=== PATIENT | female | born 1970 | race Caucasian/White ===

== ENCOUNTER 2023-10-02 13:12 | Outpatient (OUT) | payer OTHER, SELFPAY ==
--- NOTE | 2023-10-02 13:15 | MM_ITS ---
Patient Name: JOLLY MELGAR MR#: [id number] : 1970 Exam Date: 10/02/2023 Ordering Doctor: DR. DELPHINE CASTRO D.O. RADIOLOGY REPORT PROCEDURE: MM TOMOSYNTHESIS SCREENING BI COMPARISON: MAMMO CHU SCREEN, 09/22/2021. MG MAMM SCREEN 3D CHU CAD, 10/01/2022. INDICATIONS: Screening Calculator Name NCI Breast Cancer Risk Assessment Tool 5 Year Breast Cancer Risk 1.40% Lifetime Breast Cancer Risk 11.00% Personal Breast Cancer No Personal Ovarian Cancer No Treatments None Family Cancers Grandmother-maternal with breast cancer at age ~70; Aunt-maternal with breast cancer at age ~50; Grandmother-paternal with lymphoma cancer at age 62. LOCATION: [facility] BREAST COMPOSITION: Heterogeneously dense,which may obscure small masses. FINDINGS: DIAGNOSTIC CATEGORY 1--NEGATIVE. NO CHANGE FROM COMPARISON ASSESSMENT. Scattered benign-appearing lymph nodes are present. RIGHT BREAST: No significant suspicious finding. LEFT BREAST: No significant suspicious finding. RECOMMENDATIONS: ROUTINE MAMMOGRAM AND CLINICAL EVALUATION IN 12 MONTHS. PLEASE NOTE: A NORMAL MAMMOGRAM DOES NOT EXCLUDE THE POSSIBILITY OF BREAST CANCER. A CLINICALLY SUSPICIOUS PALPABLE LUMP SHOULD BE BIOPSIED. Dictated by: Marquis Knox MD on 10/03/2023 at 07:51 Approved by: Marquis Knox MD on 10/03/2023 at 07:53
== END 2023-10-02 13:13 | disposition home or self-care (01) ==
LOC: MAMMO 13:12
PROVIDERS: PCP Family Medicine; Visit Provider Obstetrics & Gynecology
DX: Z12.31 Encounter for screening mammogram for malignant neoplasm of breast (principal); Z80.3 Family history of malignant neoplasm of breast; Z80.7 Family history of other malignant neoplasms of lymphoid, hematopoietic and related tissues
CPT/HCPCS: 77063; 77067

== ENCOUNTER 2024-08-02 19:37 | Emergency (ER) | payer OTHER, SELFPAY ==
[2024-08-02 19:42] VITALS: BP 179/102; PULSE 79; TEMP 36.5; O2SAT 96; BMI 60.5
--- OUTSIDE RECORDS SUMMARY | 2024-08-02 19:43 | XMS_ITS | CCD ---
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 And Heating Mechanic Name Role Phone DELPHINE CASTRO Admitting Unavailable DELPHINE CASTRO Attending Unavailable FER, DR SOSA Primary Care Unavailable WEST, DR GEO Polanco Consulting Unavailable DELPHINE CASTRO Consulting Unavailable DELPHINE CASTRO Attending Unavailable DELPHINE CASTRO Attending Unavailable DELPHINE CASTRO Referring Unavailable DELPHINE CASTRO Attending Unavailable Problems Problem Classification Problem Date Documented Date Episodic/Chronic Other screening for suspected conditions (not mental disorders or infectious disease) (4 sources) Encounter for screening mammogram for malignant neoplasm of breast; Translations: [ENC SCR MAMMO MALIG NEOPLASM BREAST] Onset: 10-01-2022 Episodic Residual codes; unclassified (1 source) Family history of malignant neoplasm of breast; Translations: [FAMILY HX MALIG NEOPLASM OF BREAST] Onset: 10-04-2022 Episodic Residual codes; unclassified (1 source) Family history of other malignant neoplasms of lymphoid, hematopoietic and related tissues; Translations: [FAM HX OTH MAL GIL LYMPH HEMATPOETC] Onset: 10-04-2022 Episodic Results Test Name Value Interpretation Reference Range Facil ity MG MAMM SCREEN 3D CHU CADon 10-01-2022 MG MAMM SCREEN 3D CHU CAD Patient: JOLLY MELGAR Exam Date: 10/01/2022 : 1970 Gender:F Ordering : DR. DELPHINE CASTRO DDesiree Admission #: [id number] Family : Order #: [id number] CLICK HERE TO VIEW EXAM RADIOLOGY REPORT PROCEDURE: MAMMOGRAM SCREENING 3D BILATERAL CAD COMPARISON: MAMMO CHU SCREEN, 09/21/2020. MAMMO CHU SCREEN, 09/22/2021. INDICATIONS: Screening mammography Calculator Name NCI Breast Cancer Risk Assessment Tool 5 Year Breast Cancer Risk 1.40% Lifetime Breast Cancer Risk 11.20% Personal Breast Cancer No Personal Ovarian Cancer No Treatments None Family Cancers Grandmother-maternal with breast cancer at age 70; Aunt-maternal with breast cancer at age 50; Grandmother-paternal with lymphoma cancer at age 62. LOCATION: [facility] BREAST COMPOSITION: Heterogeneously dense,which may obscure small masses. FINDINGS: DIAGNOSTIC CATEGORY 1--NEGATIVE. NO CHANGE FROM COMPARISON ASSESSMENT. Scattered benign-appearing lymph nodes are present. RIGHT BREAST: No significant suspicious finding. LEFT BREAST: No significant suspicious finding. RECOMMENDATIONS: ROUTINE MAMMOGRAM AND CLINICAL EVALUATION IN 12 MONTHS. PLEASE NOTE: A NORMAL MAMMOGRAM DOES NOT EXCLUDE THE POSSIBILITY OF BREAST CANCER. A CLINICALLY SUSPICIOUS PALPABLE LUMP SHOULD BE BIOPSIED. Dictated by: Geo Knox MD on 10/01/2022 at 15:27 Approved by: Geo Knox MD on 10/01/2022 at 15:28 Normal [facility] Comprehensive Metabolic Pane slime 10-26-2021 Albumin [Mass/Vol] 4.7 g/dL Normal 3.6-5.1 [facility] Comment on above: Performed By: #### C DAYNE LIPD #### [facility] [address] [place], [place] [id number] Albumin/Globulin [Mass ratio] 2.0 {ratio} Normal 1.0-2.[address] [facility] Comment on above: Performed By: #### C DAYNE LIPD #### [facility] [address] [place], [place] [id number] ALP [Catalytic activity/Vol] 64 U/L Normal 35-[address] [facility] Comment on above: Performed By: #### C DAYNE LIPD #### [facility] [address] [place], [place] [id number] ALT [Catalytic activity/Vol] 13 U/L Normal 6-[address] [facility] Comment on above: Result Comment: 10/18 Female reference range changed. Performed By: #### C DAYNE LIPD #### [facility] [address] [place], [place] [id number] Anion gap [Moles/Vol] 18 mmol/L Normal 12-20 [facility] Comment on above: Result Comment: Effe ctive 11/23/2019 reference range changed. Performed By: #### C DAYNE LIPD #### [facility] [address] [place], [place] [id number] AST [Catalytic activity/Vol] 18 U/L Normal 9-[address] [facility] Comment on above: Performed By: #### C DAYNE LIPLatoya #### [facility] [address] [place], [place] [id number] Bilirubin [Mass/Vol] 0.63 mg/dL Normal 0.30-1.[address] [facility] Comment on above: Performed By: #### C DAYNE LIPLatoya #### [facility] [address] [place], [place] [id number] BUN/CREA 20 Ratio Normal 6-[address] [facility] Comment on above: Performed By: #### C LUIS E OSCAR #### [facility] [address] [place], [place] [id number] Calcium [Mass/Vol] 10.0 mg/dL Normal 8.6-10.2 [facility] Comment on above: Performed By: #### C DAYNE LIPLatoya #### [facility] [address] [place], [place] [id number] Chloride [Moles/Vol] 104 mmol/L Normal 98-[address] [facility] Comment on above: Performed By: #### C LUIS E OSCAR #### [facility] [address] [place], [place] [id number] CO2 [Moles/Vol] 24 mmol/L Normal 20-[address] [facility] Comment on above: Performed By: #### C DAYNE LIPLatoya #### [facility] [address] [place], [place] [id number] Creatinine [Mass/Vol] 0.8 mg/dL Normal 0.6-1.[address] [facility] Comment on above: Performed By: #### C DAYNE LIPLatoya #### [facility] [address] [place], [place] [id number] eGFRAA 97 mL/min/1.73m2 Normal >60 [facility] Specialist Comment on above: Performed By: #### C DAYNE LIPLatoya #### [facility] [address] [place], [place] [id number] eGFRNAA 80 mL/min/1.73m2 Normal >60 [place] [facility] Comment on above: Performed By: #### C DAYNE, LIPD #### [facility] [address] [place], [place] [id number] Globulin (S) [Mass/Vol] 2.3 g/dL Normal 1.9-3.7 [facility] Comment on above: Performed By: #### C MP, LIPD #### [facility] [address] [place], [place] [id number] Glucose [Mass/Vol] 94 mg/dL Normal 65-99 [facility] Comment on above: Result Comment: For FASTING Glucose --- ADA reference ranges: Normal 65-99 mg/dl Prediabetes 100-125 Diabetes >/= 126 Performed By: #### C DAYNE, LIPD #### [facility] [address] [place], [place] [id number] Potassium [Moles/Vol] 4.3 mmol/L Normal 3.5-5.5 [facility] Comment on above: Performed By: #### C DAYNE, LIPD #### [facility] [address] [place], [place] [id number] Protein [Mass/Vol] 7.0 g/dL Normal 6.1-8.1 [facility] Comment on above: Performed By: #### C DAYNE, LIPD #### [facility] [address] [place], [place] [id number] Sodium [Moles/Vol] 141 mmol/L Normal 135-146 [facility] Comment on above: Performed By: #### C DAYNE, LIPD #### [facility] [address] [place], [place] [id number] Urea nitrogen [Mass/Vol] 15 mg/dL Normal 7-25 [facility] Comment on above: Performed By: #### C DAYNE, LIPD #### [facility] [address] [place], [place] [id number] Lipid Panelon 10-26-2021 Cholesterol [Mass/Vol] 202 mg/dL High 125-200 [facility] Comment on above: Result Comment: Low risk < 200mg/dL Borderline risk 201-239 mg/dl High risk > or equal to 240 Performed By: #### C DAYNE, LIPD #### [facility] [address] [place], [place] [id number] Cholesterol in HDL [Mass/Vol] 79 mg/dL Normal >40 [facility] Comment on above: Result Comment: High Cardiovascular Risk HDL <40 mg/dL Low Cardiovascular Risk HDL > or equal to 60 mg/dl Performed By: #### C DAYNE, LIPD #### [facility] [address] [place], [place] [id number] Cholesterol in LDL [Mass/Vol] 112 mg/dL Normal [facility] Specialist Comment on above: Result Comment: LDL ATP III CLASSIFICATION LDL less than 100 mg/dl Optimal LDL 100-129 mg/dl Near or above optimal LDL 130-159 Borderline high LDL 160-189 High LDL greater than 189 mg/dl Very High Performed By: #### C DAYNE, LIPD #### [facility] [address] [place], [place] [id number] Cholesterol in VLDL [Mass/Vol] 11 mg/dL Normal [facility] Comment on above: Performed By: #### C DAYNE, LIPD #### [facility] [address] [place], [place] [id number] Cholesterol.total/C holesterol in HDL [Mass ratio] 3 {ratio} Normal [facility] Comment on above: Performed By: #### C DAYNE, LIPD #### [facility] [address] [place], [place] [id number] Triglyceride [Mass/Vol] 54 mg/dL Normal 30-150 [facility] Comment on above: Result Comment: TRIG ATPIII CLASSIFICATIONS TRIG less than 150 mg/dl Normal TRIG 150-199 mg/dl Borderline High TRIG 200-500 mg/dl High TRIG greather than 500 mg/dl Very High Performed By: #### C MP, LIPD #### [facility] [address] [place], [place] [id number] Encounters Encounter Date Encounter Type Care Provider Facility Start: 11-12-2023 End: 11-12-2023 ambulatory DELPHINE CASTRO Not Available Start: 11-04-2023 End: 11-04-2023 ambulatory DELPHINE CASTRO Not Available Start: 10-21-2023 End: 10-21-2023 ambulatory DELPHINE CASTRO Not Available Start: 10-01-2022 End: 10-02-2022 ambulatory DELPHINE CASTRO Facility:[facility] Payers Date Payer Category Payer Unknown [id number] 1970 Unknown [id number] 1970 Unknown [id number] 1970 Unknown [id number] 1970 Unknown [id number] 1959 Unknown [id number] Summary Purpose Family History No Family History Records FoundNo Family History Records FoundNo Family History Records Found Advance Directives No Advanced Directives Records FoundNo Advanced Directives Records FoundNo Advanced Directives Records Found Additional Source Comments INFORMATION SOURCE (unrecogn ized section and content) DATE CREATED AUTHOR 10/27/2021 [facility] dical Specialist DATE CREATED AUTHOR AUTHOR'S ORGANIZ ATION 10/05/2022 [facility] DATE CREATED AUTHOR AUTHOR'S ORGANIZ ATION 11/14/2023 [facility] dical Specialists EPIC FOR RECORDS PERTAINING TO PATIENTS WHO ARE OR HAVE BEEN ENROLLED IN A CHEMICAL DEPENDENCY/SUBSTANCEABUSE PROGRAM, SOME INFORMATION MAY BE OMITTED. This clinical summary was aggregated from multiple sources. Caution should be exercised in using it in the provision of clinical care. This summary normalizes information from multiple sources, and as a consequence, information in this document may materially change the coding, format and clinical context of patient data. In addition, data may be omitted in some cases. CLINICAL DECISIONS SHOULD BE BASED ON THE PRIMARY CLINICAL RECORDS. [facility]. provides no warranty or guarantee of the accuracy or completeness of information in this document.
--- NOTE | 2024-08-02 19:50 | CT_ITS ---
The [address] [address] Patient Name: JOLLY MELGAR MRN: [id number] date: 1970 Sex: F Assigned Patient Location: ED.MAIN Current Patient Location: ER Accession/Order Number: [id number] Exam Date: 08/02/2024 20:21 Report Date: 08/02/2024 21:30 At the request of: HEDY GREENFIELD Procedure: CT abdomen pelvis w con EXAM: CT abdomen pelvis w con HISTORY: LLQ pain COMPARISON: None. TECHNIQUE: Multiple axial images of the abdomen and pelvis are obtained following administration of IV contrast. Coronal and sagittal reformatted sequences are submitted for review. FINDINGS: The lung bases appear clear. Heart size is normal. The liver, gallbladder, spleen, pancreas and bilateral adrenal glands appear unremarkable. Bilateral kidneys demonstrate normal size, morphology and contrast enhancement. There is no evidence for hydronephrosis bilaterally. The urinary bladder appears unremarkable. Nonobstructive bowel pattern is seen. Normal-appearing appendix is visualized. No significant bowel wall thickening is seen. No significant free fluid or abnormal fluid is seen in the abdomen and pelvis. Mild aortic and iliac arterial calcification is seen without aneurysmal dilatation. Small fat-containing right inguinal hernia as well as umbilical hernia is seen. No destructive osseous lesion is seen. CT/CT abdomen pelvis w con IMPRESSION: No CT evidence for acute abnormality. Electronically authenticated by: CARMENZA SENA Date: 08/02/2024 21:30
--- NOTE | 2024-08-02 19:51 | ED.ABDPAIN1 ---
HPI - Abdominal Pain General Chief Complaint: Abdominal Pain Stated Complaint: Abdominal Pain Time Seen by Provider: 08/02/24 19:42 History of Present Illness HPI narrative: 54-year-old female presents to the emergency department for left lower quadrant abdominal pain. It started last night and it has been continuous and getting worse. No dysuria or hematuria and no constipation or diarrhea. No trauma or fever. She has not had pain like this before. The pain is moderate in getting worse with time. Related Data Home Medications ?Medication ?Instructions ?Recorded ?Confirmed hormone therapy unknown 08/02/24 Allergies Allergy/AdvReac Type Severity Reaction Status Date / Time No Known Drug Allergies Allergy Verified 08/02/24 19:41 Review of Systems ROS Narrative A ten point review of systems is negative except as noted above. Exam Narrative Exam Narrative: Nurses note and vital signs reviewed and patient is not hypoxic. General: The patient appears in no apparent distress. Skin: Warm, dry, no pallor noted. There is no rash noted. Head: Normocephalic, atraumatic Eye: Normal conjunctiva, no drainage Ears, Nose, Mouth, and Throat: oral mucosa is moist. Nares patent. Cardiovascular: Regular Rate and Rhythm Respiratory: Patient is in no distress, no accessory muscle use, lungs are clear to auscultation, no wheezing, rales or rhonchi Back: non-tender GI: Tenderness present in the left lower quadrant without mass or distention. No rebound or guarding. Musculoskeletal: The patient has no evidence of calf tenderness, no pitting edema, symmetrical pulses noted bilaterally Neurological: A&O, normal speech Psychiatric: Cooperative Constitutional Vital Signs, click to edit/add: Last Vital Signs Temp 97.7 F 08/02/24 19:42 Pulse 70 08/02/24 23:15 Resp 16 08/02/24 23:15 BP 149/89 H 08/02/24 23:15 Pulse Ox 96 08/02/24 23:15 O2 Del Method Room Air 08/02/24 19:42 Course Vital Signs Vital signs: Vital Signs Temperature 97.7 F 08/02/24 19:42 Pulse Rate 79 08/02/24 19:42 Respiratory Rate 16 08/02/24 19:42 Blood Pressure 179/102 H 08/02/24 19:42 Pulse Oximetry 96 08/02/24 19:42 Oxygen Delivery Method Room Air 08/02/24 19:42 Temperature 97.7 F 08/02/24 19:42 Pulse Rate 70 08/02/24 23:15 Respiratory Rate 16 08/02/24 23:15 Blood Pressure 149/89 H 08/02/24 23:15 Pulse Oximetry 96 08/02/24 23:15 Oxygen Delivery Method Room Air 08/02/24 19:42 MDM - Abdominal Pain MDM Narrative Medical decision making narrative: CAT scan and ultrasound did not show any acute findings. Ultrasound suggested the possibility of thickened endometrium but she is already had a biopsy a few months ago because thickened endometrium was discovered. It was found to be negative. 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 Treatment diagnosis and follow-up were discussed with the patient. Differential Diagnosis Differential diagnosis: Likely abdominal pain, calculus of kidney, constipation and diverticulitis Lab Data Attestation: I reviewed the patient's lab results. Labs: Lab Results 08/02/24 08/02/24 Range/Units 19:54 19:55 WBC 7.0 (4.0-11.0) 10^3/uL RBC 4.46 (4.20-5.40) 10^6/uL Hgb 13.1 (12.0-16.0) g/dL Hct 40.5 (36.0-48.0) % MCV 90.8 (81.0-99.0) fL MCH 29.4 (26.7-34.0) pg MCHC 32.3 (29.9-35.2) g/dL RDW 12.8 (11.0-15.0) % Plt Count 311 (150-450) 10^3/uL MPV 9.4 L (9.5-13.5) fL Neut % (Auto) 35.8 L (43.0-75.0) % Lymph % (Auto) 53.2 (20.5-60.0) % [place] % (Auto) 7.7 (1.7-12.0) % Eos % (Auto) 2.6 (0.9-7.0) % Baso % (Auto) 0.4 (0.2-2.0) % Neut # (Auto) 2.5 (1.4-6.5) 10^3/uL Lymph # (Auto) 3.7 (1.2-3.8) 10^3/uL [place] # (Auto) 0.5 (0.3-0.8) 10^3/uL Eos # (Auto) 0.2 (0.0-0.7) 10^3/uL Baso # (Auto) 0.0 (0.0-0.1) 10^3/uL Abs Immat Gran (auto) 0.02 (0.00-0.03) 10^3/uL Imm/Tot Granulo (auto) 0.3 (0.0-0.5) % Sodium 139 (136-145) mmol/L Potassium 3.9 (3.5-5.1) mmol/L Chloride 102 (98-107) mmol/L Carbon Dioxide 30.8 (21.0-32.0) mmol/L Anion Gap 10.1 BUN 10.0 (7.0-18.0) mg/dL Creatinine 0.95 (0.55-1.02) mg/dL Est GFR ( Amer) >60 (>=60) Est GFR (Non-Af Amer) >60 (>=60) BUN/Creatinine Ratio 10.5 Glucose 90 (74-106) mg/dL Calcium 9.2 (8.5-10.1) mg/dL Urine Color Lt. yellow (YELLOW) Urine Clarity Clear (CLEAR) Urine pH 7.5 (5.0-9.0) Ur Specific Correll 1.010 (1.005-1.025) Urine Protein Negative (NEG/TRACE) mg/dL Urine Glucose (UA) Negative (NEGATIVE) mg/dL Urine Ketones Negative (NEGATIVE) mg/dL Urine Occult Blood Negative (NEGATIVE) Urine Nitrite Negative (NEGATIVE) Urine Bilirubin Negative (NEGATIVE) Urine Urobilinogen 0.2 (0.2-1.0) EU/dL Ur Leukocyte Esterase Small A (NEGATIVE) Urine RBC 0-2 (0-2) #/HPF Urine WBC 0-2 A (NONE SEEN) #/HPF Ur Squamous Epith Cells Few A (NONE/RARE) #/LPF Urine Crystals None seen (None Seen) #/HPF Urine Bacteria Trace A (NONE SEEN) #/HPF Urine Casts None seen (NONE SEEN) #/LPF Urine Mucus None seen (NONE SEEN) Ur Culture Indicated? Yes Imaging Data CT scan - abdomen: Radiologist's impression: ITS Impressions Abdomen/Pelvis CT 08/02/24 19:50 IMPRESSION: No CT evidence for acute abnormality. Electronically authenticated by: CARMENZA SENA Date: 08/02/2024 21:30 Transvaginal US 08/02/24 21:37 IMPRESSION: 1. The uterus and left ovary appear within normal limits. The right ovary is not seen due to overlying bowel gas. 2. The endometrium measures up to 1.1 cm in thickness which is thickened in a postmenopausal patient. Consider further evaluation with MRI and/or tissue sampling to exclude malignancy as clinically indicated. Electronically authenticated by: Helen RICCI Date: 08/02/2024 23:41 Discharge Plan Discharge Chief Complaint: Abdominal Pain Clinical Impression: Abdominal pain Patient Disposition: Home, Self-Care Time of Disposition Decision: 23:58 Condition: Good Mode of Transportation: Private Vehicle Prescriptions / Home Meds: No Action hormone therapy unknown Print Language: [place] Instructions: Abdominal Pain (ED) Additional Instructions: Follow-up with your staking engineer Referrals: IAN MONROE [Primary Care Provider] - 1 week
[2024-08-02] MEDS: KETOROLAC TROMETHAMINE 30 MG/ML VIAL IVP (20:00)
[2024-08-02 20:28] LABS: Basophils Percent Auto 0.4 % (0.2-2.0); Eosinophils Absolute Auto 0.2 10^3/uL (0.0-0.7); Eosinophils Percent Auto 2.6 % (0.9-7.0); Hematocrit 40.5 % (36.0-48.0); Hemoglobin 13.1 g/dL (12.0-16.0); Immature Granulocytes Abs Auto 0.02 10^3/uL (0.00-0.03); Immature Granulocytes Pct Auto 0.3 % (0.0-0.5); Lymphocytes Absolute Auto 3.7 10^3/uL (1.2-3.8); Lymphocytes Percent Auto 53.2 % (20.5-60.0); Mean Corpuscular HGB Conc 32.3 g/dL (29.9-35.2); Mean Corpuscular Hemoglobin 29.4 pg (26.7-34.0); Mean Corpuscular Volume 90.8 fL (81.0-99.0); Mean Platelet Volume 9.4 fL (9.5-13.5); Monocytes Absolute Auto 0.5 10^3/uL (0.3-0.8); Monocytes Percent Auto 7.7 % (1.7-12.0); Neutrophils Absolute Auto 2.5 10^3/uL (1.4-6.5); Neutrophils Percent Auto 35.8 % (43.0-75.0); Platelet Count 311 10^3/uL (150-450); Red Blood Count 4.46 10^6/uL (4.20-5.40); Red Cell Distribution Width 12.8 % (11.0-15.0)
[2024-08-02 20:29] LABS: Bilirubin Urine NEGATIVE (NEGATIVE); Blood Urine NEGATIVE (NEGATIVE); Clarity Urine CLEAR (CLEAR); Color Urine LT. YELLOW (YELLOW); Glucose Urine UA NEGATIVE (NEGATIVE); Ketones Urine NEGATIVE (NEGATIVE); Leukocyte Esterase Urine SMALL (NEGATIVE); Nitrite Urine NEGATIVE (NEGATIVE); Protein Urine NEGATIVE (NEG/TRACE); Urobilinogen Urine 0.2 EU/dL (0.2-1.0); pH Urine 7.5 (5.0-9.0)
[2024-08-02 20:35] LABS: Anion Gap 10.1; BUN Creatinine Ratio 10.5; Calcium 9.2 mg/dL (8.5-10.1); Carbon Dioxide 30.8 mmol/L (21.0-32.0); Chloride 102 mmol/L (98-107); Estimated GFR (African America >60 (>=60); Estimated GFR (Non-African Ame >60 (>=60); Glucose 90 mg/dL (74-106); Potassium 3.9 mmol/L (3.5-5.1); Sodium 139 mmol/L (136-145)
[2024-08-02 20:43] LABS: Bacteria Urine TRACE #/HPF (NONE SEEN); Crystals Seen? None Seen #/HPF (None Seen); Mucus Urine NONE SEEN (NONE SEEN); RBC Urine 0-2 #/HPF (0-2); Squamous Epithelial Cell Urine FEW #/LPF (NONE/RARE); WBC Urine 0-2 #/HPF (NONE SEEN)
[2024-08-02 20:44] LABS: Cast Seen? NONE SEEN #/LPF (NONE SEEN)
[2024-08-02 20:47] LABS: Urine Culture Indicated YES
--- NOTE | 2024-08-02 21:37 | US_ITS ---
The [address] [address] Patient Name: JOLLY MELGAR MRN: [id number] date: 1970 Sex: F Assigned Patient Location: ER Current Patient Location: ER Accession/Order Number: [id number] Exam Date: 08/02/2024 21:40 Report Date: 08/02/2024 23:41 At the request of: HEDY GREENFIELD Procedure: US pelvis transvaginal EXAM: US pelvis transvaginal HISTORY: Unexplained left lower quadrant pain COMPARISON: Correlation is made with CT abdomen and pelvis examination of the same date. TECHNIQUE: Real time pelvic ultrasound examination was performed using Duplex Doppler by a transvaginal approach. FINDINGS: The uterus is normal in size and echogenicity measuring 7.9 cm in length. No focal myometrial lesions are seen. The endometrium measures up to 1.1 cm in thickness. The right ovary is not visualized. The left ovary is normal in size measuring 2.8 x 1.6 x 1.7 cm. Arterial and venous blood flow are seen within left ovary. There is no significant free fluid. US/US pelvis transvaginal IMPRESSION: 1. The uterus and left ovary appear within normal limits. The right ovary is not seen due to overlying bowel gas. 2. The endometrium measures up to 1.1 cm in thickness which is thickened in a postmenopausal patient. Consider further evaluation with MRI and/or tissue sampling to exclude malignancy as clinically indicated. Electronically authenticated by: Helen RICCI Date: 08/02/2024 23:41
[2024-08-02 21:58] VITALS: BP 123/73
[2024-08-02 23:15] VITALS: BP 149/89; PULSE 70; O2SAT 96
== END 2024-08-03 00:09 | disposition home or self-care (01) ==
PROVIDERS: Emergency Provider Emergency Medicine; PCP Family Medicine
DX: R10.9 Unspecified abdominal pain (principal)
CPT/HCPCS: 36415; 74177; 76830; 80048; 81001; 85025; 87086; 96374; 99285; J1885; Q9967

== ENCOUNTER 2024-10-05 11:16 | Outpatient (OUT) | payer OTHER, SELFPAY ==
--- NOTE | 2024-10-05 11:20 | MM_ITS ---
Patient Name: JOLLY MELGAR MR#: [id number] : 1970 Exam Date: 10/05/2024 Ordering Doctor: DR. DELPHINE CASTRO D.O. RADIOLOGY REPORT PROCEDURE: MM TOMOSYNTHESIS SCREENING BI COMPARISON: MM TOMOSYNTHESIS SCREENING BI, 10/02/2023. MG MAMM SCREEN 3D CHU CAD, 10/01/2022. MAMMO CHU SCREEN, 09/22/2021. MAMMO CHU SCREEN, 09/21/2020. INDICATIONS: Screening Calculator Name NCI Breast Cancer Risk Assessment Tool 5 Year Breast Cancer Risk 1.50% Lifetime Breast Cancer Risk 10.80% Personal Breast Cancer No Personal Ovarian Cancer No Treatments None Family Cancers Grandmother-maternal with breast cancer at age ~70; Aunt-maternal with breast cancer at age ~50; Grandmother-paternal with lymphoma cancer at age 62. LOCATION: [facility] BREAST COMPOSITION: The breasts are heterogeneously dense,which may obscure small masses. FINDINGS: DIAGNOSTIC CATEGORY 1--NEGATIVE. RIGHT BREAST: No significant suspicious finding. No significant change has occurred. LEFT BREAST: No significant suspicious finding. No significant change has occurred. RECOMMENDATIONS: ROUTINE MAMMOGRAM AND CLINICAL EVALUATION IN 12 MONTHS. PLEASE NOTE: A NORMAL MAMMOGRAM DOES NOT EXCLUDE THE POSSIBILITY OF BREAST CANCER. A CLINICALLY SUSPICIOUS PALPABLE LUMP SHOULD BE BIOPSIED. Dictated by: Ty Patterson M.D. on 10/05/2024 at 15:13 Approved by: Ty Patterson M.D. on 10/05/2024 at 15:15
--- OUTSIDE RECORDS SUMMARY | 2024-10-05 11:26 | XMS_ITS | CCD ---
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 No pre-pubertal reference range established using this assay. For any patients for whom low Estradiol levels are anticipated (e.g. males, pre-pubertal children and hypogonadal/post-menopausal females), the [facility] Estradiol, Ultrasensitive, LCMSMS assay is recommended (order code [id number]). Please note: patients being treated with the drug fulvestrant (Faslodex(R)) have demonstrated significant interference in immunoassay methods for estradiol measurement. The cross reactivity could lead to falsely elevated estradiol test results leading to an inappropriate clinical assessment of estrogen status. [facility] order code [id number], Ultrasensitive LC/MS/MS demonstrates negligible cross reactivity with fulvestrant. Performed By: #### 3 [id number] #### [facility]/[place] [id number] [facility] [place], [place] [employer] [facility] [employer] [facility] Assistant: Wilmer Herman M.D.,PhD #### 4021, 745 #### [facility] [address], [address] [place] [address] Food And Nutrition Services Assistant: Corey Rodriguez MD #### 439 #### [facility] [place], [address] [place] [address] Food And Nutrition Services Assistant: Zena Clark MD,PhD,JESSICA ESTROGENS, TOTAL, IAon 09-29 ESTROGENS, TOTAL, IA 76 pg/mL Normal [facility] Comment on above: Result Comment: Reference Ranges for Total Estrogen: Follicular Phase: 51-601 Luteal Phase: 87-1194 Postmenopausal: < or = 214 Performed By: #### 3 6170 #### [facility]/[place] [place], [place] [employer] And [employer] Services Assistant: Wilmer Herman M.D.,PhD #### 4021, 745 #### [facility] [place] [address] [employer] And Nutrition Services Assistant: Corey Rodriguez MD #### 439 #### [facility], [address] [facility] [place] [address] Food And Nutrition Services Assistant: Zena Clark MD,PhD,JESSICA PROGESTERONEon 09-29-2024 PROGESTERONE 1.5 ng/mL Normal [facility] Comment on above: Result Comment: Refe rence Ranges Female Follicular Phase < 1.0 Luteal Phase 2.6-21.5 Post menopausal < 0.5 1st Trimester 4.1-34.0 2nd Trimester 24.0-76.0 3rd Trimester 52.0-302.0 Performed By: #### 3 6170 #### [facility]/[address] [place], [place] [employer] And Nutrition Services Assistant: Wilmer Herman M.D.,PhD #### 4021, 745 #### [facility] [address], [address] [place] [address] Food And Nutrition Services Assistant: Corey Rodriguez MD #### 439 #### [facility], [address] [place] [address] Food And Nutrition Services Assistant: Zena Clark MD,PhD,JESSICA TESTOSTERONE, FREE (DIALYSIS ) AND TOTAL,MSon 09-29-2024 TESTOSTERONE, FREE 9.9 pg/mL High 0.1-6.4 [facility] Comment on above: Result Comment: This test was developed and its analytical performance characteristics have been determined by [facility] [place], [place]. It has not been cleared or approved by the U.S. Food and Drug Administration. This assay has been validated pursuant to the CLIA regulations and is used for clinical purposes. Performed By: #### 3 [id number] #### [facility]/[place] [id number] [facility] [place], [place] [employer] And Nutrition Services Assistant: Wilmer Hemran M.D.,PhD #### 4021, 745 #### [facility] [address], [address] [place] [address] Food And Nutrition Services Assistant: Corey Rodriguez MD #### 439 #### [facility], [address] [place] [address] Food And Nutrition Services Assistant: Zena Clark MD,PhD,JESSICA TESTOSTERONE, TOTAL, MS 70 ng/dL High 2-45 [facility] Comment on above: Result Comment: For additional information, please refer to http://education.[employer]/faq/ XqrrgGjrzexlgtepoISVHABPGY775 (This link is being provided for informational/ educational purposes only.) This test was developed and its analytical performance characteristics have been determined by [facility] [place], [place]. It has not been cleared or approved by the U.S. Food and Drug Administration. This assay has been validated pursuant to the CLIA regulations and is used for clinical purposes. Performed By: #### 3 6170 #### [facility]/[place] [facility] [address] [facility] [place], [place] Food And Nutrition Services Assistant: Wilmer Herman M.D.,PhD #### 4021, 745 #### [facility] [place] [address] [facility], [address] [place] [address] Food And Nutrition Services Assistant: Corey Rodriguez MD #### 439 #### [facility] [address] [address] Food And Nutrition Services Assistant: Zena Clark MD,PhD,JESSICA MG MAMM SCREEN 3D CHU CADon 10-01-2022 MG MAMM SCREEN 3D CHU CAD Patient: JOLLY MELGAR Exam Date: 10/01/2022 : 1970 Gender:F Ordering : DR. DELPHINE CASTRO D.O. Admission #: [id number] Family : Order #: [id number] CLICK HERE TO VIEW EXAM RADIOLOGY REPORT [...] lymphoma cancer at age 62. LOCATION: [facility] BREAST COMPOSITION: Heterogeneously dense,which may obscure small [...] MD on 10/01/2022 at 15:28 Normal [facility] Comprehensive Metabolic Pane slime 10-26-2021 Albumin [Mass/Vol] 4.7 g/dL Normal 3.6-5.1 [facility] Comment on above: Performed By: #### C MP, LIPD #### [facility] [address] [facility] [place] [id number] Albumin/Globulin [Mass ratio] 2.0 {ratio} Normal 1.0-2.5 [facility] Comment on above: Performed By: #### C MP, LIPD #### [facility] [address] [place] [id number] ALP [Catalytic activity/Vol] 64 U/L Normal 35-119 [facility] Comment on above: Performed By: #### C MP, LIPD #### [facility] [address] [facility] [place] [id number] ALT [Catalytic activity/Vol] 13 U/L Normal 6-33 [facility] Comment on above: Result Comment: 10/18 Female reference range changed. Performed By: #### C MP, LIPD #### [facility] [address] [facility] [place] [id number] Anion gap [Moles/Vol] 18 mmol/L Normal 12-20 [facility] Comment on above: Result Comment: Effe ctive 11/23/2019 reference range changed. Performed By: #### C MP, LIPD #### [facility] [address] [place] [id number] AST [Catalytic activity/Vol] 18 U/L Normal 9-34 [facility] Comment on above: Performed By: #### C MP, LIPD #### [facility] [address] [facility] [place] [id number] Bilirubin [Mass/Vol] 0.63 mg/dL Normal 0.30-1.20 [facility] Comment on above: Performed By: #### C DAYNE LIPD #### [facility] [address] [place], [place] [id number] BUN/CREA 20 Ratio Normal 6-22 [facility] Comment on above: Performed By: #### C DAYNE LIPD #### [facility] [address] [place], [place] [id number] Calcium [Mass/Vol] 10.0 mg/dL Normal 8.6-10.2 [facility] Comment on above: Performed By: #### C DAYNE LIPD #### [facility] [address] [facility] [place] [id number] Chloride [Moles/Vol] 104 mmol/L Normal 98-107 [facility] Comment on above: Performed By: #### C DAYNE LIPD #### [facility] [address] [place], [place] [id number] CO2 [Moles/Vol] 24 mmol/L Normal 20-31 [facility] Comment on above: Performed By: #### C DAYNE LIPD #### [facility] [address] [place], [place] [id number] Creatinine [Mass/Vol] 0.8 mg/dL Normal 0.6-1.4 [facility] Comment on above: Performed By: #### C DAYNE LIPD #### [facility] [address] [place], [place] [id number] eGFRAA 97 mL/min/1.73m2 Normal >60 [facility] Comment on above: Performed By: #### C DAYNE LIPLatoya #### [facility] [address] [place], [place] [id number] eGFRNAA 80 mL/min/1.73m2 Normal >60 [facility] Comment on above: Performed By: #### C DAYNE LIPD #### [facility] [address] [place], [place] [id number] Globulin (S) [Mass/Vol] 2.3 g/dL Normal 1.9-3.7 [facility] Comment on above: Performed By: #### C DAYNE LIPD #### [facility] [address] [place], [place] [id number] Glucose [Mass/Vol] 94 mg/dL Normal 65-99 [facility] Comment on above: Result Comment: For FASTING Glucose --- ADA reference ranges: Normal 65-99 mg/dl Prediabetes 100-125 Diabetes >/= 126 Performed By: #### C MP, LIPD #### [facility] [address] [place], [place] [id number] Potassium [Moles/Vol] 4.3 mmol/L Normal 3.5-5.5 [facility] Comment on above: Performed By: #### C MP, LIPD #### [facility] [address] [place], [place] [id number] Protein [Mass/Vol] 7.0 g/dL Normal 6.1-8.1 [facility] Comment on above: Performed By: #### C MP, LIPD #### [facility] [address] [place], [place] [id number] Sodium [Moles/Vol] 141 mmol/L Normal 135-146 [facility] Comment on above: Performed By: #### C MP, LIPD #### [facility] [address] [place], [place] [id number] Urea nitrogen [Mass/Vol] 15 mg/dL Normal 7-25 [facility] Comment on above: Performed By: #### C MP, LIPD #### [facility] [address] [place], [place] [id number] Lipid Panelon 10-26-2021 Cholesterol [Mass/Vol] 202 mg/dL High 125-200 [facility] Comment on above: Result Comment: Low risk < 200mg/dL Borderline risk 201-239 mg/dl High risk > or equal to 240 Performed By: #### C MP, LIPD #### [facility] [address] [place], [place] [id number] Cholesterol in HDL [Mass/Vol] 79 mg/dL Normal >40 [facility] Comment on above: Result Comment: High Cardiovascular Risk HDL <40 mg/dL Low Cardiovascular Risk HDL > or equal to 60 mg/dl Performed By: #### C MP, LIPD #### [facility] [address] [place], [place] [id number] Cholesterol in LDL [Mass/Vol] 112 mg/dL Normal [facility] Comment on above: Result Comment: LDL ATP III CLASSIFICATION LDL less than 100 mg/dl Optimal LDL 100-129 mg/dl Near or above optimal LDL 130-159 Borderline high LDL 160-189 High LDL greater than 189 mg/dl Very High Performed By: #### C MP, LIPD #### [facility] [address] [place], [place] [id number] Cholesterol in VLDL [Mass/Vol] 11 mg/dL Normal [facility] Comment on above: Performed By: #### C MP, LIPD #### [facility] [address] [place], [place] [id number] Cholesterol.total/Ch olesterol in HDL [Mass ratio] 3 {ratio} Normal [facility] Comment on above: Performed By: #### C MP, LIPD #### [facility] [address] [place], [place] [id number] Triglyceride [Mass/Vol] 54 mg/dL Normal 30-150 [facility] Comment on above: Result Comment: TRIG ATPIII CLASSIFICATIONS TRIG less than 150 mg/dl Normal TRIG 150-199 mg/dl Borderline High TRIG 200-500 mg/dl High TRIG greather than 500 mg/dl Very High Performed By: #### C MP, LIPD #### [facility] [address] [place], [place] [id number] Encounters Encounter Date Encounter Type Care Provider Facility Start: 11-12-2023 End: 11-12-2023 ambulatory DELPHINE J RICORA Not Available Start: 11-04-2023 End: 11-04-2023 ambulatory DELPHINE J NATAPRAWIRA Not Available Start: 10-21-2023 End: 10-21-2023 ambulatory DELPHINE J NATAPRAWIRA Not Available Start: 10-01-2022 End: 10-02-2022 ambulatory DELPHINE DARYLAWIRA Facility: Payers Date Payer Category Payer Unknown [id number] [id number] [id number] 1970 Unknown [id number] 1970 Unknown [id number] 1970 Unknown [id number] 1970 Unknown [id number] 1959 Unknown [id number] Summary Purpose Family History No Family History Records FoundNo Family History Records FoundNo Family History Records FoundNo Family History Records Found Advance Directives No Advanced Directives Records FoundNo Advanced Directives Records FoundNo Advanced Directives Records FoundNo Advanced Directives Records Found Additional Source Comments INFORMATION SOURCE (unrecogn ized section and content) DATE CREATED AUTHOR 10/27/2021 [facility] dical Specialist DATE CREATED AUTHOR AUTHOR'S ORGANIZ ATION 10/05/2022 [facility] pital DATE CREATED AUTHOR AUTHOR'S ORGANIZ ATION 11/14/2023 [facility] dical Specialists EPIC DATE CREATED AUTHOR AUTHOR'S ORGANIZ ATION 10/02/2024 [facility] FOR RECORDS PERTAINING TO PATIENTS WHO ARE [...] BE BASED ON THE PRIMARY CLINICAL RECORDS. [facility] [employer] provides no warranty or guarantee of the accuracy or completeness of information in this document.
== END 2024-10-05 11:17 | disposition home or self-care (01) ==
LOC: MAMMO 11:16
PROVIDERS: PCP Family Medicine; Visit Provider Obstetrics & Gynecology
DX: Z12.31 Encounter for screening mammogram for malignant neoplasm of breast (principal); Z80.3 Family history of malignant neoplasm of breast; Z80.7 Family history of other malignant neoplasms of lymphoid, hematopoietic and related tissues
CPT/HCPCS: 77063; 77067

== ENCOUNTER 2025-10-06 10:15 | Outpatient (OUT) | payer OTHER, SELFPAY ==
--- NOTE | 2025-10-06 10:19 | MM_ITS ---
Patient Name: JOLLY MELGAR MR#: [id number] : 1970 Exam Date: 10/06/2025 Ordering Doctor: DR. DELPHINE CASTRO D.O. RADIOLOGY REPORT PROCEDURE: MM TOMOSYNTHESIS SCREENING BI COMPARISON: MM TOMOSYNTHESIS SCREENING BI, 10/05/2024. MM TOMOSYNTHESIS SCREENING BI, 10/02/2023. MG MAMM SCREEN 3D CHU CAD, 10/01/2022. MAMMO CHU SCREEN, 09/21/2020. INDICATIONS: Screening Calculator Name NCI Breast Cancer Risk Assessment Tool 5 Year Breast Cancer Risk 1.60% Lifetime Breast Cancer Risk 10.70% Personal Breast Cancer No Personal Ovarian Cancer No Treatments None Family Cancers Grandmother-maternal with breast cancer at age ~70; Aunt-maternal with breast cancer at age ~50; Grandmother-paternal with lymphoma cancer at age 62. LOCATION: [facility] BREAST COMPOSITION: The breasts are heterogeneously dense, which may obscure small masses. FINDINGS: RIGHT BREAST: No significant suspicious finding. LEFT BREAST: No significant suspicious finding. DIAGNOSTIC CATEGORY 1--NEGATIVE. NO CHANGE FROM COMPARISON ASSESSMENT. RECOMMENDATIONS: ROUTINE MAMMOGRAM AND CLINICAL EVALUATION IN 12 MONTHS. Dictated by: Agapito Jefferson MD on 10/06/2025 at 15:52 Approved by: Agapito Jefferson MD on 10/06/2025 at 16:01
--- OUTSIDE RECORDS SUMMARY | 2025-10-06 10:19 | XMS_ITS | CCD ---
Author Organization [facility] Care Team Providers Care Labor Economics Teacher Name Role Phone AFIA DIAS Admitting Unavailable AFIA DIAS Attending Unavailable DR DOUGLAS MONROE Primary Care Unavailable WEST, DR GEO Polanco Consulting Unavailable AFIA DIAS Consulting Unavailable Douglas Monroe MD Primary Care Provider Douglas Monroe MD Primary Care Provider Douglas Monroe MD Primary Care Provider Michael Garcia MD Attending Provider [phone] Michael Garcia Attending Unavailable Michael Garcia Admitting Unavailable ALEXANDER TREJO Attending Unavailable DOUGLAS MONROE Referring Unavailable ALEXANDER TREJO Attending Unavailable AFIA DIAS Attending Unavailable DOUGLAS MONROE Attending Unavailable Douglas Monroe MD Primary Care Provider [phone] Medications Current Medications MedicationDrug Class(es)DatesSig (Normalized)Sig (Original)b complex vitamins capsule (2 sources)take 1 capsule by mouth once dailyb complex vitamins capsule Take 1 capsule by mouth Daily Activecholecalciferol 0.05 mg oral capsule (13 sources)Vitamin Dtake 1 capsule by mouth once dailycholecalciferol (Vitamin D-3) 50 MCG (1999) capsule Take 1,000 Units by mouth Daily Activetake 1 capsule by mouth in the morningcholecalciferol (Vitamin D-3) 50 MCG (1999) capsule Take 2,000 Units by mouth in the morning. ActiveHormone Cream Base (HRT Base) cream (2 sources)Hormone Cream Base (HRT Base) cream Estriol 0.125mg-estradiol 0.115- progesterone 35mg-testosterone0.2MG/0.5ML ActiveIodine / Potassium Iodide (2 sources)take 0.5 tablet by mouth once dailyIODINE-POTASSIUM IODIDE PO Take 0.5 tablets by mouth Daily ActiveMagnesium Hydroxide (2 sources)take 600 mg by mouth once dailyMagnesium Hydroxide (MAGNESIA PO) Take 600 mg by mouth Daily glycinate ActiveMultiple Vitamin (multivitamin) capsule (13 sources)take 1 capsule by mouth in the morningMultiple Vitamin (multivitamin) capsule Take 1 capsule by mouth in the morning. ActiveProbiotic Product (PROBIOTIC BLEND PO) (13 sources)Probiotic Product (PROBIOTIC BLEND PO) Take by mouth. Activezinc citrate 30 mg oral capsule (13 sources)take 1 capsule by mouth in the morningZinc 30 MG capsule Take 1 capsule by mouth in the morning. Active Completed/Discontinued Medications MedicationDrug Class(es)DatesSig (Normalized)Sig (Original)ascorbic acid 500 mg oral capsule (12 sources)Vitamin C End: 47-19-8665nzxj 1 capsule by mouth once dailyAscorbic Acid (Vitamin C) 500 MG capsule Take 1 capsule by mouth 1 (one) time each day. 08/03/2025 D iscontinued (Med list cleanup)Misc Natural Products (DETOX PO) (12 sources) End: 94-36-1553mxcl 1 capsule by mouth in the morningMisc Natural Products (DETOX PO) Take 1 capsule by mouth in the morning. 08/03/2025 Discontinued (Med list cleanup)take 1 capsule by mouth in the morningMisc Natural Products (DETOX PO) Take 1 capsule by mouth in the morning. ActiveMISC NATURAL PRODUCTS EX (12 sources) End: 67-46-6442OOXZ NATURAL PRODUCTS EX Apply topically Estradiol cream 0.115 mg Estriol 0.125 mg Testosterone 0.2mg Progesterone 35 mg Vanpen cream 0.5ml FROM BUDERER 08/03/2025 Discontinued (Med list cleanup)MISC NATURAL PRODUCTS EX Apply topically Estradiol cream 0.115 mg Estriol 0.125 mg Testosterone 0.2mg Progesterone 35 mg Vanpen cream 0.5ml FROM BUDERER ActiveMISC NATURAL PRODUCTS EX Apply topically Estradiol cream 0.25 mg Estriol 0.25 mg Testosterone 0.25 mg Progesterone 25 mg FROM BUDERER Active Problems Active Problems Problem ClassificationProblemDateDocumented DateEpisodic/Chronic Administrative/social admission (2 sources)Advance directive discussed with patient; Translations: [Other specified counseling]85-49-4740QacuosjqVlmhiohkmk disorders (4 sources)Menopausal syndrome; Translations: [Menopausal and female climacteric states]92-50-9277NvsrtgvMisqfdidkf disorders (2 sources)Postmenopausal state; Translations: [Hormone replacement therapy] 01-00-3220ZxmyvrujOehjszulf disorders (13 sources)Irregular periods; Translations: [Irregular menstruation, unspecified]Onset: 030312-08-0308WouhwodTritmnzkoojd breast conditions (13 sources)Fibrocystic disease of breast; Translations: [Diffuse cystic mastopathy of unspecified breast]Onset: 391023-96-8814SwpbdnkCkbrl female genital disorders (2 sources)Pain in female genitalia on intercourse; Translations: [Unspecified dyspareunia]64-81-5868OcfnjvuBsadb nutritional; endocrine; and metabolic disorders (13 sources)Obesity caused by energy imbalance; Translations: [Other obesity due to excess calories]Onset: 663214-93-9671JjllkqaMfyxqagr of female genital organs (2 sources)Midline cystocele; Translations: [Cystocele, midline]10-21-2024 ChronicResidual codes; unclassified (1 source)Family history of malignant neoplasm of breast; Translations: [FAMILY HX MALIG NEOPLASM OF BREAST]Onset: 77-29-4917LtaobsazPkoircol codes; unclassified (1 source)Family history of other malignant neoplasms of lymphoid, hematopoietic and related tissues; Translations: [FAM HX OTH MAL GIL LYMPH HEMATPOETC]Onset: 58-04-1767CljzlslkFbkezqgg codes; unclassified (2 sources)Menopause present; Translations: [Asymptomatic menopausal state] 96-98-9290Snkaoloj Past or Other Problems Problem ClassificationProblemDateDocumented DateEpisodic/ChronicOther nutritional; endocrine; and metabolic disorders (13 sources)Body mass index 25-29 - overweight; Translations: [Overweight]Onset: 888060-12-3630NhdwqrmoCkkjf screening for suspected conditions (not mental disorders or infectious disease) (20 sources)Encounter for screening mammogram for malignant neoplasm of breast; Translations: [Patient encounter status]Onset: 37-65-3758Hlmafkgo Results Test NameValueInterpretationReference RangeFacilityCOMPREHENSIVE METABOLIC PANEL on 32-98-7565Xwbxmdc [Mass/Vol]4.6 g/dLNormal3.6-5.1Quest DiagnosticsComment on above:Performed By: #### 61994, 7600 #### [facility] of [address], [address] [place] [address] Heading Up Machine Operator: Corey Rodriguez MDAlbumin/Globulin [Mass ratio]1.6 {ratio}Normal 1.0-2.5Quest DiagnosticsComment on above:Performed By: #### 53444, 7600 #### [facility] of [place] [address] Heading Up Machine Operator: Corey Rodriguez MDALP [Catalytic activity/Vol]55 U/TXashny49-518 [facility] DiagnosticsComment on above:Performed By: #### 47361, 7600 #### [facility] of [place] [address] Heading Up Machine Operator: Corey Rodriguez MDALT [Catalytic activity/Vol]14 U/LNormal6-29 Quest DiagnosticsComment on above:Performed By: #### 10649, 7600 #### [facility] of [place] [address] Heading Up Machine Operator: Corey Rodriguez MDAST [Catalytic activity/Vol]18 U/HDccley92-74 Quest DiagnosticsComment on above:Performed By: #### 29639, 7600 #### [facility] of [place] [address] Heading Up Machine Operator: Corey Rodriguez MDBilirubin [Mass/Vol]0.4 mg/dLNormal0.2-1.2 Quest DiagnosticsComment on above:Performed By: #### 71514, 7600 #### [facility] of [address], [address] [place] [address] Heading Up Machine Operator: Corey Rodriguez MDBUN/CREATININE RATIOSEE NOTE:Normal6-22Quest DiagnosticsComment on above:Result Comment: Not Reported: BUN and Creatinine are within reference range.Performed By: #### 51556, 7600 #### [facility] of [address], [address] [place] [address] Heading Up Machine Operator: Corey Rodriguez MDCalcium [Mass/Vol]9.5 mg/dLNormal8.6-10.4Quest DiagnosticsComment on above:Performed By: #### 67625, 7600 #### [facility] of [address], [address] [place] [address] Heading Up Machine Operator: Corey Rodriguez MDChloride [Moles/Vol]105 mmol/HSdxtyq00-770 Quest DiagnosticsComment on above:Performed By: #### 28980, 7600 #### [facility] of [address], [address] [place] [address] Heading Up Machine Operator: Corey Rodriguez MDCO2 [Moles/Vol]26 mmol/CGcirav31-69Znoku DiagnosticsComment on above:Performed By: #### 62219, 7600 #### [facility] of [place] [address] Heading Up Machine Operator: Corey KAURreatinine [Mass/Vol]0.79 mg/dLNormal0.50-1.03 [facility] DiagnosticsComment on above:Performed By: #### 23166, 7600 #### [facility] of [place] [address] Heading Up Machine Operator: Corey Rodriguez MDGFR/1.73 sq M.predicted among non-blacks MDRD (S/P/Bld) [Vol rate/Area]88 mL/min/{1.73_m2}Normal> OR = 60[facility] Comment on above:Performed By: #### 58048, 7600 #### [facility] of [place] [address] Heading Up Machine Operator: Corey Rodriguez MDGlobulin (S) [Mass/Vol]2.9 g/dLNormal1.9-3.7 Quest DiagnosticsComment on above:Performed By: #### 86275, 7600 #### [facility] [place] [address] Heading Up Machine Operator: Corey Rodriguez MDGlucose [Mass/Vol]88 mg/oYMpqybs60-84Uqstd DiagnosticsComment on above:Result Comment: Fasting reference intervalPerformed By: #### 85794, 7600 #### [facility] [place] [address] Heading Up Machine Operator: Corey Rodriguez MDPotassium [Moles/Vol]4.1 mmol/LNormal3.5-5.3 [facility] DiagnosticsComment on above:Performed By: #### 50141, 7600 #### [facility] [place] [address] Heading Up Machine Operator: Corey Rodriguez MDProtein [Mass/Vol]7.5 g/dLNormal6.1-8.1Quest DiagnosticsComment on above:Performed By: #### 59673, 7600 #### [facility] [place] [address] Heading Up Machine Operator: Corey Rodriguez MDSodium [Moles/Vol]138 mmol/XDegxiu605-610Gwhdv DiagnosticsComment on above:Performed By: #### 26781, 7600 #### [facility] [place] [address] Heading Up Machine Operator: Corey Rodriguez MDUrea nitrogen [Mass/Vol]13 mg/dLNormal7-25 Quest DiagnosticsComment on above:Performed By: #### 24992, 7600 #### [facility] [place] [address] Heading Up Machine Operator: Corey Rodriguez MDLIPID PANEL, STANDARDon 70-40-3991Ipgeneynupr [Mass/Vol]226 mg/dLHigh<200Quest DiagnosticsComment on above:Order Comment: FASTING:YES FASTING: YESPerformed By: #### 31003, 7600 #### [facility] [address], [address] [place] [address] Heading Up Machine Operator: Corey Rodriguez MDCholesterol in HDL [Mass/Vol]101 mg/dLNormal> OR = 50Quest DiagnosticsComment on above:Order Comment: FASTING:YES FASTING: YESPerformed By: #### 76353, 7600 #### [facility] [address], [address] [place] [address] Heading Up Machine Operator: Corey KAURholesterol in LDL [Mass/Vol]109 mg/dLHigh Quest DiagnosticsComment on above:Order Comment: FASTING:YES FASTING: YESResult Comment: Reference range: <100 Desirable range <100 mg/dL for primary prevention; <70 mg/dL for patients with CHD or diabetic patients with > or = 2 CHD risk factors. LDL-C is now calculated using the Sandhya calculation, which is a validated novel method providing better accuracy than the Friedewald equation in the estimation of LDL-C. Yasmani MUSTAFA et al. CATHY. 2013;310(19): 1593-3282 (http://education.[employer] OTR.AriadNEXT/faq/HHG623)Performed By: #### 11369, 7600 #### [facility] [address], [address] [place] [address] Heading Up Machine Operator: Corey Rosales.total/Cholesterol in HDL [Mass ratio]2.2 {ratio}Normal<5.0Quest DiagnosticsComment on above:Order Comment: FASTING:YES FASTING: YESPerformed By: #### 87615, 7600 #### [facility] [address], [address] [place] [address] Heading Up Machine Operator: Corey ALCARAZ HDL ERJAHWHZMQU179 mg/dL (calc)Normal<130 Quest DiagnosticsComment on above:Order Comment: FASTING:YES FASTING: YESResult Comment: For patients with diabetes plus 1 major ASCVD risk factor, treating to a non-HDL-C goal of <100 mg/dL (LDL-C of <70 mg/dL) is considered a therapeutic option.Performed By: #### 05860, 7600 #### [facility] [address], [address] [place] [address] Heading Up Machine Operator: Corey Rodriguez MDTriglyceride [Mass/Vol]72 mg/dLNormal<150Quest DiagnosticsComment on above:Order Comment: FASTING:YES FASTING: YESPerformed By: #### 84615, 7600 #### [facility] [address], [address] [place] [address] Heading Up Machine Operator: Corey Rodriguez MDLaboratory - Chemistry and Chemistry - critical access hospital [id number] [Mass/Vol]4.6 g/dL3.6 - 5.1 g/dLNOMI Healthcare Albumin/Globulin [Mass ratio]1.6 {ratio}NOMS HealthcareALP [Catalytic activity/Vol]55 U/L37 - 153 U/LNOMS HealthcareALT [Catalytic activity/Vol]14 U/L 6 - 29 U/LNOMS HealthcareAST [Catalytic activity/Vol]18 U/L10 - 35 U/LNOMS HealthcareBilirubin [Mass/Vol]0.4 mg/dL0.2 - 1.2 mg/dLNOMS HealthcareCalcium [Mass/Vol]9.5 mg/dL8.6 - 10.4 mg/dLNOMI HealthcareChloride [Moles/Vol]105 mmol/L 98 - 110 mmol/LNOMS HealthcareCO2 [Moles/Vol]26 mmol/L20 - 32 mmol/LNOMS HealthcareCreatinine [Mass/Vol]0.79 mg/dL0.50 - 1.03 mg/dLNOMI Healthcare GFR/1.73 sq M.predicted among non-blacks MDRD (S/P/Bld) [Vol rate/Area]88 mL/min/{1.73_m2}> OR = 60 mL/min/1.20e3WPQT HealthcareGlobulin (S) [Mass/Vol]2.9 g/dLNOMI HealthcareGlucose [Mass/Vol]88 mg/dL65 - 99 mg/dLNOMI Healthcare Comment on above: Fasting reference interval Potassium [Moles/Vol]4.1 mmol/L3.5 - 5.3 mmol/LNOMS HealthcareProtein [Mass/Vol] 7.5 g/dL6.1 - 8.1 g/dLThree Rivers HealthcareSodium [Moles/Vol]138 mmol/L135 - 146 mmol/LNOMS HealthcareUrea nitrogen [Mass/Vol]13 mg/dL7 - 25 mg/dLThree Rivers Healthcare Urea nitrogen/Creatinine [Mass ratio]SEE NOTE:[facility] HealthcareComment on above: Not Reported: BUN and Creatinine are within reference range. Lipid 1996 panelon 92-09-9591Yfdgqvpbbhx [Mass/Vol]226 mg/dLHighNINF - 200 mg/dL [facility] HealthcareCholesterol in HDL [Mass/Vol]101 mg/dL> OR = 50[facility] Cholesterol in LDL [Mass/Vol]109 mg/dLHighmg/dL (calc)[facility] HealthcareComment on above:Reference range: <100 Desirable range <100 mg/dL for primary prevention; <70 mg/dL for patients with CHD or diabetic patients with > or = 2 CHD risk factors. LDL-C is now calculated using the Yasmani-Osmel calculation, which is a validated novel method providing better accuracy than the Friedewald equation in the estimation of LDL-C. Yasmani SS et al. CATHY. 2013;310(19): 3726-7734 (http://education.[employer] OTR.AriadNEXT/faq/UAF093) Cholesterol non HDL [Mass/Vol]125 mg/dLNISt. Johns & Mary Specialist Children HospitalComment on above:For patients with diabetes plus 1 major ASCVD risk factor, treating to a non-HDL-C goal of <100 mg/dL (LDL-C of <70 mg/dL) is considered a therapeutic option. Cholesterol.total/Cholesterol in HDL [Mass ratio]2.2 {ratio}[facility] [place] Interpretation and review of laboratory resultsAbBeaumont Hospital Triglyceride [Mass/Vol]72 mg/dLNINF - 150 mg/dLThree Rivers HealthcareNo Panel Informationon [id number]:YES FASTING: YESQUESTPerforming Organization Information Site ID: QPT Name: [facility] Address: [address] [place] [address], [address] [place] [id number] Director: Corey Rodriguez MDCritical access hospitalCALCITRIOL 1,25 DIHYDROXYVITAMIN Don 39-77-9601EYAZIMW D, 1,25 (OH)2, TOTAL56 pg/sJKvyped07-57 [facility] DiagnosticsComment on above:Performed By: #### 75884, 46184 #### [facility] [address] [facility] [place], [place] Heading Up Machine Operator: Wilmer Herman M.D.,PhD #### 622, 367, 402, 4021, 745 #### [facility] [address], [address] [place], [place] [address] Heading Up Machine Operator: Corey Rodriguez MD #### 13446, 23160 #### [facility], [address] [place] [address] Heading Up Machine Operator: Zena Clark MD,PhD,MBAVITAMIN D2, 1,25 (OH)2<8NormalQuest DiagnosticsComment on above:Result Comment: Vitamin D3, 1,25(OH)2 indicates both endogenous production and supplementation. Vitamin D2, 1,25(OH)2 is an indicator of exogenous sources, such as diet or supplementation. Interpretation and therapy are based on measurement of Vitamin D,1,25(OH)2, Total. This test was developed and its analytical performance characteristics have been determined by [facility] [place], [place]. It has not been cleared or approved by the FDA. This assay has been validated pursuant to the CLIA regulations and is used for clinical purposes.Performed By: #### 64369, 95635 #### [facility] [address] [facility] [place], [place] Heading Up Machine Operator: Wilmer Herman M.D.,PhD #### 622, 367, 402, 4021, 745 #### [facility] [address], [address] [place], [place] [address] Heading Up Machine Operator: Corey Rodriguez MD #### 50520, 34736 #### [facility], [address] [place] [address] Heading Up Machine Operator: Zena Clark MD,PhD,MBAVITAMIN D3, 1,25 (OH)256 pg/mLNormal [facility]osticsComment on above:Performed By: #### 23992, 74397 #### [facility] [address] [facility] [address] [place] Heading Up Machine Operator: Wilmer Herman M.D.,PhD #### 622, 367, 402, 4021, 745 #### [facility] [address], [address] [place] [address] Heading Up Machine Operator: Corey Rodriguez MD #### 83068, 10861 #### [facility]/[place] [address] Heading Up Machine Operator: Zena Clark MD,PhD,MBACORTISOL, TOTALon [id number], TOTAL11.0 mcg/dLNormalQuest DiagnosticsComment on above:Result Comment: Reference Range: For 8 a.m.(7-9 a.m.) Specimen: 4.0-22.0 Reference Range: For 4 p.m.(3-5 p.m.) Specimen: 3.0-17.0 * Please interpret above results accordingly *Performed By: #### 73085, 6345 #### [facility] [address], [address] [place], [place] [address] Heading Up Machine Operator: Corey Rodriguez MDCortisolon 10-30-9885Ycejcjvt [Mass/Vol]11 ug/dLmcg/dLNOMS HealthcareComment on above:Reference Range: For 8 a.m.(7-9 a.m.) Specimen: 4.0-22.0 Reference Range: For 4 p.m.(3-5 p.m.) Specimen: 3.0-17.0 * Please interpret above results accordingly * DHEA SULFATEon 88-00-8671GUFC TMTNHES603 mcg/dLNormal5-167[facility] Comment on above:Performed By: #### 94550, 7412 #### [facility] [address], [address] [place] [address] Heading Up Machine Operator: Corey Rodriguez MDDHEA-sulfateon 48-34-1459QSTE-S [Mass/Vol]114 ug/dLNOMS HealthcareESTRADIOLon 12-42-0594OVOSRJBNH01 pg/mLNormalQuest DiagnosticsComment on above:Result Comment: Reference Range Follicular Phase: 19-144 Mid-Cycle: 64-357 Luteal Phase: 56-214 Postmenopausal: < or = 31 Reference range established on post-pubertal patient population. No pre-pubertal reference range established using this assay. For any patients for whom low Estradiol levels are anticipated (e.g. males, pre-pubertal children and hypogonadal/post-menopausal females), the [facility] Estradiol, Ultrasensitive, LCMSMS assay is recommended (order code [id number]). Please note: patients being treated with the drug fulvestrant (Faslodex(R)) have demonstrated significant interference in immunoassay methods for estradiol measurement. The cross reactivity could lead to falsely elevated estradiol test results leading to an inappropriate clinical assessment of estrogen status. [facility] order code [id number], Ultrasensitive LC/MS/MS demonstrates negligible cross reactivity with fulvestrant.Performed By: #### 23480, 7082 #### [facility] [address], [address] [place], [place] [address] Heading Up Machine Operator: Corey Rodriguez MDESTRONEon 43-91-9442MJIXDFI59 pg/mLNormalQuest DiagnosticsComment on above:Result Comment: Adult Female Reference Ranges for Estrone: Follicular Phase: 10-138 pg/mL Luteal Phase: 16-173 pg/mL Postmenopausal Phase: < or = 65 pg/mL Pediatric Female Reference Ranges for Estrone: Pre-pubertal (1-9 years): < or = 34 pg/mL 10-11 years: < or = 72 pg/mL 12-14 years: < or = 75 pg/mL 15-17 years: < or = 188 pg/mL This test was developed and its analytical performance characteristics have been determined by [employer] [facility]. It has not been cleared or approved by the FDA. This assay has been validated pursuant to the CLIA regulations and is used for clinical purposes.Performed By: #### 46731, 08823 #### [facility]/[place] [address] [facility] [address] [place], [place] Heading Up Machine Operator: Wilmer Herman M.D.,PhD #### 622, 367, 402, 4021, 745 #### [facility] [address] [facility], [address] [place] [address] Heading Up Machine Operator: Corey Rodriguez MD #### 39393, 93247 #### [facility]/[place] [facility], [address] [place] [address] Heading Up Machine Operator: Zena Clark MD,PhD,MBAEstradiolon [id number] [Mass/Vol]21 pg/mLNOMS HealthcareComment on above:Reference Range Follicular Phase: 19-144 Mid-Cycle: 64-357 Luteal Phase: 56-214 Postmenopausal: < or = 31 Reference range established on post-pubertal patient population. No pre-pubertal reference range established using this assay. For any patients for whom low Estradiol levels are anticipated (e.g. males, pre-pubertal children and hypogonadal/post-menopausal females), the [employer] [facility] [facility] Estradiol, Ultrasensitive, LCMSMS assay is recommended (order code [id number]). Please note: patients being treated with the drug fulvestrant (Faslodex(R)) have demonstrated significant interference in immunoassay methods for estradiol measurement. The cross reactivity could lead to falsely elevated estradiol test results leading to an inappropriate clinical assessment of estrogen status. [employer] [facility] [facility] order code [id number], Ultrasensitive LC/MS/MS demonstrates negligible cross reactivity with fulvestrant. Estroneon [id number] [Mass/Vol]30 pg/mLNOMS HealthcareComment on above: Adult Female Reference Ranges for Estrone: Follicular Phase: 10-138 pg/mL Luteal Phase: 16-173 pg/mL Postmenopausal Phase: < or = 65 pg/mL Pediatric Female Reference Ranges for Estrone: Pre-pubertal (1-9 years): < or = 34 pg/mL 10-11 years: < or = 72 pg/mL 12-14 years: < or = 75 pg/mL 15-17 years: < or = 188 pg/mL This test was developed and its analytical performance characteristics have been determined by [employer] [facility] [facility]. It has not been cleared or approved by the FDA. This assay has been validated pursuant to the CLIA regulations and is used for clinical purposes. MAGNESIUMon [id number] [Mass/Vol]2.3 mg/dLNormal1.5-2.5Quest DiagnosticsComment on above:Performed By: #### 40954, 76540 #### [facility]/[address] [place], [place] Heading Up Machine Operator: Wilmer Herman M.D.,PhD #### 622, 367, 402, 4021, 745 #### [facility] [place] [address] Heading Up Machine Operator: Corey Rodriguez MD #### 24167, 65473 #### [employer] [facility]/[place] [address] Heading Up Machine Operator: Zena Clark MD,PhD,MBAMagnesiumon 26-64-5506Vyqnyojta [Mass/Vol]2.3 mg/dL1.5 - 2.5 mg/dLLOGAN REGIONAL [facility] HealthcareNo Panel Informationon [id number] Organization Information Site ID: QPT Name: [facility] Address: [address] [place] [address] Director: Corey Rodriguez MDAscension Saint Clare's Hospitalg Organization Information Site ID: AMD Name: [employer] [facility]/[place] [facility] Address: [address] [place] [address] [place], [place] Director: Wilmer Herman M.D.,PhDSt. [facility]'s [facility] Organization Information Site ID: EZ Name: [employer] [facility], Address: [address] [place] [address] Director: Zena Clark MD,PhD,MBHILLCREST [facility]PITAL HealthcarePREGNENOLONE, LC/MSon [id number], LC/MS92 ng/iKSusmfc27-757Buzqi DiagnosticsComment on above:Result Comment: This test was developed and its analytical performance characteristics have been determined by [employer] [facility] [facility]. It has not been cleared or approved by the FDA. This assay has been validated pursuant to the CLIA regulations and is used for clinical purposes.Performed By: #### 28904, 7600 #### [facility] [address], [address] [place] [address] Heading Up Machine Operator: Corey CONWAYROGESTERONEon 88-17-9284AVQDMKOEELYY6.8 ng/mL NormalQuest DiagnosticsComment on above:Result Comment: Reference Ranges Female Follicular Phase < 1.0 Luteal Phase 2.6-21.5 Post menopausal < 0.5 1st Trimester 4.1-34.0 2nd Trimester 24.0-76.0 3rd Trimester 52.0-302.0Performed By: #### 46734, 0170 #### [facility] [address], [address] [place] [address] Heading Up Machine Operator: Corey Rodriguez MDPregnenoloneon 51-80-0878Lepyuufyhobj [Mass/Vol]92 ng/dL22 - 237 ng/dLNOMS HealthcareComment on above: This test was developed and its analytical performance characteristics have been determined by [employer]. It has not been cleared or approved by the FDA. This assay has been validated pursuant to the CLIA regulations and is used for clinical purposes. Progesteroneon 56-44-3049Lzkpyhwqzvhh [Mass/Vol]0.8 ng/mLNOMS HealthcareComment on above:Reference Ranges Female Follicular Phase < 1.0 Luteal Phase 2.6-21.5 Post menopausal < 0.5 1st Trimester 4.1-34.0 2nd Trimester 24.0-76.0 3rd Trimester 52.0-302.0 TESTOSTERONE, FREE (DIALYSIS) AND TOTAL,MSon 19-25-8617SVWICJNLSORW, FREE2.0 pg/mLNormal0.1-6.4Quest DiagnosticsComment on above:Result Comment: This test was developed and its analytical performance characteristics have been determined by [employer] [place], [place]. It has not been cleared or approved by the U.S. Food and Drug Administration. This assay has been validated pursuant to the CLIA regulations and is used for clinical purposes.Performed By: #### 85428, 7600 #### [facility] [address], [address] [place] [address] Heading Up Machine Operator: Corey Rodriguez MDTESTOSTERONE, TOTAL, MS18 ng/dLNormal2-45Quest DiagnosticsComment on above:Result Comment: For additional information, please refer to http://education.[employer].AriadNEXT/faq/ OdgfyYagsdzuvorzhYETUUBOLO473 (This link is being provided for informational/ educational purposes only.) This test was developed and its analytical performance characteristics have been determined by [employer] [place], [place]. It has not been cleared or approved by the U.S. Food and Drug Administration. This assay has been validated pursuant to the CLIA regulations and is used for clinical purposes.Performed By: #### 45920, 7600 #### [facility] [address], [address] [place] [address] Heading Up Machine Operator: Corey Rodriguez MDTestosterone Free/Testosterone.total [Mass fraction]on 15-45-9367Luuxzmcgpqjj [Mass/Vol]18 ng/dL2 - 45 ng/dLNOMS Healthcare Comment on above: For additional information, please refer to http://[employer].AriadNEXT/faq/ BnbriQwtjcnyagadvYXPPIUJFM502 (This link is being provided for informational/ educational purposes only.) This test was developed and its analytical performance characteristics have been determined by [place] It has not been cleared or approved by the U.S. Food and Drug Administration. This assay has been validated pursuant to the CLIA regulations and is used for clinical purposes. Testosterone Free [Mass/Vol]2 pg/mL0.1 - 6.4 pg/mLNOMS HealthcareComment on above: This test was developed and its analytical performance characteristics have been determined by [place]. It has not been cleared or approved by the U.S. Food and Drug Administration. This assay has been validated pursuant to the CLIA regulations and is used for clinical purposes. Vitamin D 1,25 dihydroxyon 51,25-dihydroxyvitamin D [Mass/Vol]56 pg/mL 18 - 72 pg/mLNOMS Healthcare1,25-dihydroxyvitamin D2 [Mass/Vol]<8pg/mLNOMS HealthcareComment on above: Vitamin D3, 1,25(OH)2 indicates both endogenous production and supplementation. Vitamin D2, 1,25(OH)2 is an indicator of exogenous sources, such as diet or supplementation. Interpretation and therapy are based on measurement of Vitamin D,1,25(OH)2, Total. This test was developed and its analytical performance characteristics have been determined by [facility] [place]. It has not been cleared or approved by the FDA. This assay has been validated pursuant to the CLIA regulations and is used for clinical purposes. 1,25-dihydroxyvitamin D3 [Mass/Vol]56 pg/mLNOMS HealthcarePathology Request for Lab Corpon 57-39-9467Bddloccko Request for Lab CorpNormAdventHealth Four Corners ER Physician GroupComment on above:Order Comment: SKIN SPECIMENResult Comment: See report. Scanned copy available in EMR. PERFORMED BY: [place] [address] PATHOLOGIST WIND TURBINE INSTALLER NOE DE LA VEGA M.D.Performed By: #### PATH [facility] #### [place] [address] USASEX HORMONE BINDING GLOBULINon 74-11-7077ZMI HORMONE BINDING NBCETKQM27 nmol/JXcttpx69-875Aznvn DiagnosticsComment on above:Performed By: #### 10627 #### [facility] [place] [address] Heading Up Machine Operator: Corey Rodriguez MDSex hormone binding globulinon 52-99-2713Ioh hormone binding globulin [Moles/Vol]36 nmol/L17 - 124 nmol/LNOMS Healthcare Performing Organization Information Site ID: QPT Name: [employer] Address: [address] [place] [address], [address] [place] [address] Director: Corey Rodriguez MDSentara Albem[facility] TOMOSYNTHESIS SCREENING BIon 49-63-8563[place], [place] [address] Mammography Report Signed Patient: JOLLY MELGAR MR#: [id number] : 1970 Acct:[id number] Age/Sex: 54 / F ADM Date: 10/05/24 Loc: MAMMO Attending Dr: AFIA DIAS Ordering Physician: AFIA DIAS Results: Date of Service: 10/05/24 Follow Up: Procedure(s): MM tomosynthesis screening BI Accession Number(s): [id number] cc: DOUGLAS MONROE ; AFIA DIAS Patient Name: JOLLY MELGAR MR#: [id number] : 1970 Exam Date: 10/05/2024 Ordering Doctor: DR. AFIA DIAS D.O. RADIOLOGY REPORT PROCEDURE: MM TOMOSYNTHESIS SCREENING BI COMPARISON: MM TOMOSYNTHESIS SCREENING BI, 10/02/2023. MG MAMM SCREEN 3D CHU CAD, 10/01/2022. MAMMO CHU SCREEN, 09/22/2021. MAMMO CHU SCREEN, 09/21/2020. INDICATIONS: Screening Calculator Name NCI Breast Cancer Risk Assessment Tool 5 Year Breast Cancer Risk 1.50% Lifetime Breast Cancer Risk 10.80% Personal Breast Cancer No Personal Ovarian Cancer No Treatments None Family Cancers Grandmother-maternal with breast cancer at age 70; Aunt-maternal with breast cancer at age 50; Grandmother-paternal with lymphoma cancer at age 62. LOCATION: [facility] BREAST COMPOSITION: The breasts are heterogeneously dense,which may obscure small masses. FINDINGS: DIAGNOSTIC CATEGORY 1--NEGATIVE. RIGHT BREAST: No significant suspicious finding. No significant change has occurred. LEFT BREAST: No significant suspicious finding. No significant change has occurred. RECOMMENDATIONS: ROUTINE MAMMOGRAM AND CLINICAL EVALUATION IN 12 MONTHS. PLEASE NOTE: A NORMAL MAMMOGRAM DOES NOT EXCLUDE THE POSSIBILITY OF BREAST CANCER. A CLINICALLY SUSPICIOUS PALPABLE LUMP SHOULD BE BIOPSIED. Dictated by: Ty Patterson M.D. on 10/05/2024 at 15:13 Approved by: Ty Patterson M.D. on 10/05/2024 at 15:15 Dictated By: Ty Patterson M.D. Signed By: 10/05/24 1516 DD/ 1515 TD/TT: Outside Food Server:TBHRadiology, Radiologist, MD - 10/05/2024 [place] [address] Mammography Report Signed Patient: JOLLY MELGAR MR#: [id number] : 1970 Acct:[id number] Age/Sex: 54 / F ADM Date: 10/05/24 Loc: MAMMO Attending Dr: AFIA DIAS Ordering Physician: FAIA DIAS Results: Date of Service: 10/05/24 Follow Up: Procedure(s): MM tomosynthesis screening BI Accession Number(s): [id number] cc: DOUGLAS MONROE ; AFIA DIAS Patient Name: JOLLY MELGAR MR#: [id number] : 1970 Exam Date: 10/05/2024 Ordering Doctor: DR. AFIA DIAS D.O. RADIOLOGY REPORT PROCEDURE: MM TOMOSYNTHESIS SCREENING BI COMPARISON: MM TOMOSYNTHESIS SCREENING BI, 10/02/2023. MG MAMM SCREEN 3D CHU CAD, 10/01/2022. MAMMO CHU SCREEN, 09/22/2021. MAMMO CHU SCREEN, 09/21/2020. INDICATIONS: Screening Calculator Name NCI Breast Cancer Risk Assessment Tool 5 Year Breast Cancer Risk 1.50% Lifetime Breast Cancer Risk 10.80% Personal Breast Cancer No Personal Ovarian Cancer No Treatments None Family Cancers Grandmother-maternal with breast cancer at age 70; Aunt-maternal with breast cancer at age 50; Grandmother-paternal with lymphoma cancer at age 62. LOCATION: [facility] BREAST COMPOSITION: The breasts are heterogeneously dense,which may obscure small masses. FINDINGS: DIAGNOSTIC CATEGORY 1--NEGATIVE. RIGHT BREAST: No significant suspicious finding. No significant change has occurred. LEFT BREAST: No significant suspicious finding. No significant change has occurred. RECOMMENDATIONS: ROUTINE MAMMOGRAM AND CLINICAL EVALUATION IN 12 MONTHS. PLEASE NOTE: A NORMAL MAMMOGRAM DOES NOT EXCLUDE THE POSSIBILITY OF BREAST CANCER. A CLINICALLY SUSPICIOUS PALPABLE LUMP SHOULD BE BIOPSIED. Dictated by: Ty Patterson M.D. on 10/05/2024 at 15:13 Approved by: Ty Patterson M.D. on 10/05/2024 at 15:15 Dictated By: Ty Patterson M.D. Signed By: 10/05/24 1516 DD/ 1515 TD/TT: Outside Food Server: [facility] HOSPITALShira [facility] Lady [facility] Mer[facility] HospitalRadiology Study observation (narrative)[facility] TOMOSYNTHESIS SCREENING BIOrdered By: Radiologist Radiology on 61-31-6483UQFY [employer] Work Phone: ESTRADIOLon 91-54-5212MBSUYXKWC<15NormalQuest DiagnosticsComment on above:Result Comment: Reference Range Follicular Phase: 19-144 Mid-Cycle: 64-357 Luteal Phase: 56-214 Postmenopausal: < or = 31 Reference range established on post-pubertal patient population. No pre-pubertal reference range established using this assay. For any patients for whom low Estradiol levels are anticipated (e.g. males, pre-pubertal children and hypogonadal/post-menopausal females), the oDesk Estradiol, Ultrasensitive, LCMSMS assay is recommended (order code 67176). Please note: patients being treated with the drug fulvestrant (Faslodex(R)) have demonstrated significant interference in immunoassay methods for estradiol measurement. The cross reactivity could lead to falsely elevated estradiol test results leading to an inappropriate clinical assessment of estrogen status. [employer] order code [id number]-Vnvjaznji, Ultrasensitive LC/MS/MS demonstrates negligible cross reactivity with fulvestrant.Performed By: #### 4021, 745 #### [facility] [address], [address] [place] [address] Heading Up Machine Operator: Corey Rodriguez MD #### 439 #### [facility], [address] [place] [address] Heading Up Machine Operator: Zena Clark MD,PhD,JESSICA #### 27030 #### [facility] [address] [facility] [address] [place] [address] Heading Up Machine Operator: Wilmer Herman M.D.,PhDESTROGENS, TOTAL, IAon 09-29-2024 ESTROGENS, TOTAL, IA76 pg/mLNormalQuest DiagnosticsComment on above:Result Comment: Reference Ranges for Total Estrogen: Follicular Phase: 51-601 Luteal Phase: 87-1194 Postmenopausal: < or = 214Performed By: #### 4021, 745 #### [facility] [place] [address] [facility], [address] [place] [address] Heading Up Machine Operator: Corey Rodriguez MD #### 439 #### [facility], [address] [place] [address] Heading Up Machine Operator: Zena Clark MD,PhD,JESSICA #### 01725 #### [facility] [address] [facility] [address] [place] Heading Up Machine Operator: Wilmer Herman M.D.,PhDPROGESTERONEon 89-86-0573RQJWOZLUKLCV 1.5 ng/mLNormalQuest DiagnosticsComment on above:Result Comment: Reference Ranges Female Follicular Phase < 1.0 Luteal Phase 2.6-21.5 Post menopausal < 0.5 1st Trimester 4.1-34.0 2nd Trimester 24.0-76.0 3rd Trimester 52.0-302.0Performed By: #### 4021, 745 #### [facility] [address], [address] [place] [address] Heading Up Machine Operator: Corey Rodriguez MD #### 439 #### [facility], [address] [place] [address] Heading Up Machine Operator: Zena Clark MD,PhD,JESSICA #### [address]4077 #### [facility]/[place] [address] [facility] [address] [place] Heading Up Machine Operator: Wilmer Herman M.D.,PhDTESTOSTERONE, FREE (DIALYSIS) AND TOTAL,MSon 05-18-4456GRQVNGQJVMDH, FREE9.9 pg/mLHigh0.1-6.4[facility] Comment on above:Result Comment: This test was developed and its analytical performance characteristics have been determined by [employer] [place], [place]. It has not been cleared or approved by the U.S. Food and Drug Administration. This assay has been validated pursuant to the CLIA regulations and is used for clinical purposes.Performed By: #### 4021, 745 #### [facility] [address], [address] [place] [address] Heading Up Machine Operator: Corey Rodriguez MD #### 439 #### [facility], [address] [place] [address] Heading Up Machine Operator: Zena Clark MD,PhD,JESSICA #### 925[address] #### [facility] [address] [facility] [place], [place] Heading Up Machine Operator: Wilmer Herman M.D.,PhDTESTOSTERONE, TOTAL, MS70 ng/dLHigh 2-45Quest DiagnosticsComment on above:Result Comment: For additional information, please refer to http://education.[employer]/faq/ NitekSxoqkgsigssdXEXSUBDXX862 (This link is being provided for informational/ educational purposes only.) This test was developed and its analytical performance characteristics have been determined by [employer] [place]. It has not been cleared or approved by the U.S. Food and Drug Administration. This assay has been validated pursuant to the CLIA regulations and is used for clinical purposes.Performed By: #### 4021, 745 #### [facility] [address] [place], [place] [address] , [address] [place] [address] Heading Up Machine Operator: Corey Rodriguez MD #### 439 #### [facility], [address] [place] [address] Heading Up Machine Operator: Zena Clark MD,PhD,JESSICA #### 81391 #### [facility] [address] [facility] [address] [place] [address] Heading Up Machine Operator: Wilmer Herman M.D.,PhDURINE CULTURE, ROUTINEon 08-04-2024 Bacteria identified Cx Nom (U) Urine Culture, Routine NOMS HealthcareBacteria identified Cx Nom (U)Mixed urogenital floraNOMS HealthcareBacteria identified Cx Nom (U)25,000-50,000 colony forming units per mLNOMS HealthcareBacteria identified Cx Nom (U)Performed at: - [facility] NOMS HealthcareBacteria identified Cx Nom (U)[address] [place], [place] [id number] HealthcareBacteria identified Cx Nom (U)Toll Patrolman: Clifford Sainz PhD, Phone: [phone] HealthcareCLINISYNCARDINAL CUSHING [facility] HealthcareMG MAMM SCREEN 3D CHU CADon 79-27-0279UJ MAMM SCREEN 3D CHU CADPatient: JOLLY MELGAR Exam Date: 10/01/2022 : 1970 Gender:F Ordering : DR. AFIA DIAS D.O. Admission #: [id number] Family : Order #: [id number] CLICK HERE TO VIEW EXAM RADIOLOGY REPORT [...] lymphoma cancer at age 62. LOCATION: [facility] BREAST COMPOSITION: Heterogeneously dense,which may obscure [...] by: Geo Knox MD on 10/01/2022 at 15:28[facility] Comprehensive Metabolic Panelon 56-24-9227Ahzpbdq [Mass/Vol]4.7 g/dLNormal 3.6-5.1[facility] SpecialistComment on above:Performed By: #### CMP, LIPD #### [facility] [address] [place], [place] [id number]/Globulin [Mass ratio]2.0 {ratio}Normal1.0-2.5NoAvita Health [facility] SpecialistComment on above:Performed By: #### CMP, LIPD #### [facility] [address] [place], [place] [id number] [Catalytic activity/Vol]64 U/YIanwva82-169Zneuscxn [place] [facility] SpecialistComment on above:Performed By: #### CMP, LIPD #### [facility] [address] [place], [place] [id number] [Catalytic activity/Vol]13 U/LNormal6-33N[facility] SpecialistComment on above:Result Comment: 10/18/2021 Female reference range changed.Performed By: #### CMP, LIPD #### [facility] [address] [place], [place] [address]Djlyb gap [Moles/Vol]18 mmol/JDzeugn53-02Vqbecltv [place] [facility] SpecialistComment on above:Result Comment: Effective 11/23/2019 reference range changed.Performed By: #### CMP, LIPD #### [facility] [address] [place], [place] [id number] [Catalytic activity/Vol]18 U/LNormal9-34NoAvita Health System [facility] Hospital SpecialistComment on above:Performed By: #### CMP, LIPD #### [facility] [address] [place], [place] [id number] [Mass/Vol]0.63 mg/dLNormal0.30-1.20NortLima [facility] Hospital SpecialistComment on above:Performed By: #### CMP, LIPD #### [facility] [address] [place], [place] [id number]/CREA20 RatioNormal6-22[place] [employer] Comment on above:Performed By: #### CMP, LIPD #### [facility] [address] [place], [place] [id number] [Mass/Vol]10.0 mg/dLNormal8.6-10.2[facility] [place] [facility] SpecialistComment on above:Performed By: #### CMP, LIPD #### [facility] [address] [place], [place] [id number] [Moles/Vol]104 mmol/RGqzwzc14-652Retzeibe [place] [facility] SpecialistComment on above:Performed By: #### CMP, LIPD #### [facility] [address] [place], [place] [id number] [Moles/Vol]24 mmol/AYhjtdi11-40Gpabeail [place] [facility] SpecialistComment on above:Performed By: #### CMP, LIPD #### [facility] [address] [place], [place] [id number] [Mass/Vol]0.8 mg/dLNormal0.6-1.4[facility] [place] [facility] SpecialistComment on above:Performed By: #### CMP, LIPD #### [facility] [address] [place], [place] [id number] mL/min/1.40t0Hlpkgf>60[facility] [place] [facility] SpecialistComment on above:Performed By: #### CMP, LIPD #### [facility] [address] [place], [place] [id number] mL/min/1.18k7Duwduy>60[facility] [place] [facility] SpecialistComment on above:Performed By: #### CMP, LIPD #### [facility] [address] [place], [place] [id number] (S) [Mass/Vol]2.3 g/dLNormal1.9-3.7[facility] [place] [facility] SpecialistComment on above:Performed By: #### CMP, LIPD #### [facility] [address] [place], [place] [id number] [Mass/Vol]94 mg/yUHgxnay48-91Ogrzbqqx [place] [facility] SpecialistComment on above:Result Comment: For FASTING Glucose --- ADA reference ranges: Normal 65-99 mg/dl Prediabetes 100-125 Diabetes >/= 126Performed By: #### CMP, LIPD #### [facility] [address] [place], [place] [id number] [Moles/Vol]4.3 mmol/LNormal3.5-5.5NoAvita Health System [facility] Hospital SpecialistComment on above:Performed By: #### CMP, LIPD #### [facility] [address] [place], [place] [id number] [Mass/Vol]7.0 g/dLNormal6.1-8.1NortherUK Healthcare SpecialistComment on above:Performed By: #### CMP, LIPD #### [facility] [address] [place], [place] [id number] [Moles/Vol]141 mmol/ZUfenev177-003Bizvafvw [place] [facility] SpecialistComment on above:Performed By: #### CMP, LIPD #### [facility] [address] [place], [place] [id number] nitrogen [Mass/Vol]15 mg/dLNormal7-25NoAvita [facility] System [facility] SpecialistComment on above:Performed By: #### CMP, LIPD #### [facility] [address] [place], [place] [id number] Panelon 50-31-6266Gtjlqrdqyka [Mass/Vol]202 mg/dLHigh 125-200NoAvita [facility] System [facility] SpecialistComment on above:Result Comment: Low risk < 200mg/dL Borderline risk 201-239 mg/dl High risk > or equal to 240Performed By: #### CMP, LIPD #### [facility] [address] [place], [place] [id number] in HDL [Mass/Vol]79 mg/dLNormal>40NoAvita Health System [facility] SpecialistComment on above:Result Comment: High Cardiovascular Risk HDL <40 mg/dL Low Cardiovascular Risk HDL > or equal to 60 mg/dlPerformed By: #### CMP, LIPD #### [facility] [address] [place], [place] [id number] in LDL [Mass/Vol]112 mg/dLNormalNoAvita Health System [facility] Hospital SpecialistComment on above:Result Comment: LDL ATP III CLASSIFICATION LDL less than 100 mg/dl Optimal LDL 100-129 mg/dl Near or above optimal LDL 130-159 Borderline high LDL 160-189 High LDL greater than 189 mg/dl Very HighPerformed By: #### CMP, LIPD #### [facility] [address] [place], [place] [id number] in VLDL [Mass/Vol]11 mg/dLNormalUk Healthcare SpecialistComment on above:Performed By: #### CMP, LIPD #### [facility] [address] [place], [place] [id number].total/Cholesterol in HDL [Mass ratio]3 {ratio} NormalNorttucson va medical centern [facility] SpecialistComment on above:Performed By: #### CMP, LIPD #### [facility] [address] [place], [place] [id number] [Mass/Vol]54 mg/oHFpkmgs95-520Pcrnniwm [place] [facility] SpecialistComment on above:Result Comment: TRIG ATPIII CLASSIFICATIONS TRIG less than 150 mg/dl Normal TRIG 150-199 mg/dl Borderline High TRIG 200-500 mg/dl High TRIG greather than 500 mg/dl Very HighPerformed By: #### CMP, LIPD #### [facility] [address] [place], [place] [id number] Vital Signs Date TimeVital SignValuePerforming TjjimydsuShuegqoh47-37-4694 11:37-0400Body ekwiki141.6 Sada Monroe MD Work Phone: [facility] HealthcareRougybaidf72-55-4623 11:37-0400Body mass index (BMI) [Ratio]29.35 kg/n6VtwzoeDouglas Monroe MD Work Phone: [facility] HealthcareHvgmbyjcor05-73-4442 11:37-0400Body .56 kgDouglas Monroe MD Work Phone: [facility] HealthcareWipymdpzjj07-43-0189 11:37-0400Diastolic blood mknpbuqn50 mm[Hg]Douglas Monroe MD Work Phone: [facility] HealthcareZsbppkojjg89-31-1527 11:37-0400Heart rate65 /min Douglas Monroe MD Work Phone: 1(571)[facility]-8957[facility] HealthcareGdrmttugcb41-93-4378 11:37-3405OsD3% (BldA) [Mass fraction]97 %Douglas Monroe MD Work Phone: [facility] HealthcareHfhbeehauu56-80-0427 11:37-0400Systolic blood cljabpwb489 mm[Hg]Douglas Monroe MD Work Phone: [facility] HealthcareVktpouxwfz50-71-9546 09:05-0500Body .6 cmFredric Itzkowitz DO Work Phone: [facility] HealthcareTivocokkcj72-51-9110 09:05-0500Body mass index (BMI) [Ratio]28.84 kg/d2Qfpggcd Itzkowitz DO Work Phone: [facility] HealthcareVqvnokwwob83-45-9959 09:05-0500Body hzteni11.2 kg Alexander Itzkowitz DO Work Phone: [facility] HealthcareMynkavytus51-30-0220 09:05-0500Diastolic blood iksumhvy39 mm[Hg]Alexander Itzkowitz DO Work Phone: [facility] HealthcareZzxyccammk23-44-5341 09:05-0500Systolic blood otpimbxb963 mm[Hg]Alexander Itzkowitz DO Work Phone: [facility] HealthcareCotpcwzxfe66-38-6498 11:42-0500Body mass index (BMI) [Ratio]27.46 kg/m2Mona Nataprawira DO Work Phone: [facility] HealthcareNvayqeqscs47-64-0148 11:42-0500Body daejvj51.84 kgMona Nataprawira DO Work Phone: [facility] HealthcareUmmgbpisji36-40-7201 11:42-0500Diastolic blood mm[Hg]Afia Nataprawira DO Work Phone: [facility] Dpmypwldiv11-69-6271 11:42-0500Systolic blood mksyjizo761 mm[Hg]Afia Dias DO Work Phone: [facility] Encounters Encounter DateEncounter TypeCare ProviderFacilityStart: 08-03-2025 End: 53-11-9002Yioeyu flowsOneal Monroe MD Work Phone: [facility] MedicineStart: 08-03-2025 End: 87-62-7491Lutkzc flowsOneal Monroe MD Work Phone: [facility] [address] [facility] MedicineStart: 08-03-2025 End: 78-04-9642Lpcwwxm encounter statusDouglas Monroe MD Work Phone: noms HealthcareStart: 08-03-2025 End: 95-76-0367Odicjeun preventive med est patient 40-64yrsEdbenjie Monroe MD Work Phone: noMI [address] [facility] MedicineComment on above: Encounter for wellness examination in adult; Advance directive discussed with patient; Screening for diabetes mellitus (DM); Encounter for lipid screening for cardiovascular disease; Screening for osteoporosis; MenopauseStart: 08-03-2025 End: 93-84-8585bdapyowltdERAIWD J HEMEYERNot AvailableStart: 06-21-2025 End: 90-82-3728Oygayemr Result EncounterMonluis alberto Rosita Arun DO Work Phone: [facility] External Department UnsolicitedStart: 06-21-2025 End: 67-38-1744Keurdhov Result EncounterMonluis alberto Dias DO Work Phone: noms External Department UnsolicitedStart: 03-24-2025 End: 04-55-6008uumdtneosgBhrowbc [facility] Work Phone: Start: 03-24-2025 End: 98-48-5863Njvqcstv ReferredMichael Garcia MD Work Phone: [facility] [place] Work Phone: Start: 02-25-2025 End: 10-19-3223Mcjvxt follow up visit related to original pxAlexander Trejo DO Work Phone: noms ST GENSComment on above:Special screening for malignant neoplasms, colon (Primary Dx)Start: 02-15-2025 End: 23-68-7319Fgjjwc flowsheetAlexander Marie Itcoytz DO Work Phone: noms ST GENSStart: 02-15-2025 End: 06-47-8251Cdsefp flowsheetAlexander Marie Itcoytz DO Work Phone: noms ST GENSStart: 02-15-2025 End: 12-12-2918apiaytksbaUAKZTMR H ITZCELIATZNot AvailableStart: 01-14-2025 End: 45-19-9999Incjydb encounter procedureAlexander Trejo DO Work Phone: noms GENSComment on above:Special screening for malignant neoplasms, colon (Primary Dx)Start: 01-14-2025 End: 75-25-8061nvzykkodkhXZDQOEF Frank ITZCELIATZNot AvailableStart: 10-22-2024 End: 01-12-1328Timrnrx encounter statusMona Rosita Dias DO Work Phone: noms [facility] Work Phone: start: 10-22-2024 End: 28-88-7242Pqtivqer preventive med est patient 40-64yrsMona Rosita Nataprawira DO Work Phone: noms NB OBComment on above:Encounter for gynecological examination (general) (routine) with abnormal findings (Primary Dx); Cystocele, midline; Postmenopausal HRT (hormone replacement therapy); Menopausal vasomotor syndrome; Vaginal dryness, menopausal; Dyspareunia in female; Screening breast examinationStart: 10-22-2024 End: 10-88-7546cdvhvdsfpeNSDA J NATAPRAWIRANot AvailableStart: 10-07-2024 End: 95-38-6694Mawluama Result EncounterMona J Nataprawira DO Work Phone: noms External Department UnsolicitedStart: 10-07-2024 End: 59-62-7944Entuimpt Result EncounterMona J Nataprawira DO Work Phone: noms External Department UnsolicitedStart: 10-05-2024 End: 63-18-7909Hzhpyliof Result EncounterGeneric External Data ProviderNOMS External Department UnsolicitedStart: 10-05-2024 End: 40-23-6387Lgmghcqbu Result EncounterGeneric External Data ProviderNOMS External Department UnsolicitedStart: 08-02-2024 End: 78-11-9012Xecodptuj Result EncounterGeneric External Data ProviderNOMS External Department UnsolicitedStart: 08-02-2024 End: 57-34-3328Sngdqcihb Result EncounterGeneric External Data ProviderNOMS External Department UnsolicitedStart: 10-01-2022 End: 09-06-1991qyctsrxmemGUZI NATAPRAWIRAFacility:H1 Procedures DateProcedureProcedure DetailPerforming ClinicianStart: 02-82-1160Bhebsxuobdybd metabolic panelDouglas Monroe MD Work Phone: Start: 07-91-3285Wvpak Jake Monroe MD Work Phone: Start: 94-56-7758Iqfngkew totalMona Rosita Natdaniara DO Work Phone: start: 74-93-3632HyqjokzxplzLberppn Itzkowitz DO Work Phone: Start: 26-13-8500Vusps of sex hormone binding globulin Afia Rosita Nataprawira DO Work Phone: start: 97-99-7823VU TOMOSYNTHESIS SCREENING BIGeneric External Data ProviderStart: 91-64-7093YysslpuhtdwDjfq Nataprawira DO Work Phone: start: 91-72-4737Cinarvuj identified in Urine by CultureGeneric External Data ProviderStart: 05-81-3408TwlismjxjgmRcfiizw ProviderStart: 02-11-1819Yyfvjuheqnw observation [Identifier] in Cervix by Cyto stainGeneric Provider Plan of Treatment DateCare ActivityDetailAuthorStart: 34-97-5763Kiomtjqmu for malignant neoplasm of colonNOMS HealthcareStart: 94-17-9317Grsspodxh vaccinationInfluenza Vaccine (#1)NOMS HealthcareComment on above:Postponed from 07/19/2025 (Patient Refused) Start: 10-26-2025 End: 74-04-9419Baobucq encounter procedureNOMS NB OBStart: 61-33-9777Biopyzerv for malignant neoplasm of breastMammogramNOMS HealthcareStart: 09-18-2025 Screening for malignant neoplasm of cervixNOMS HealthcareStart: 08-03-2025 End: 29-08-7004Agfuzbd encounter lwzzocjwb70/16/2025 11:30 AM EDT [facility] [address] [address] Douglas Monroe MD [address] [phone] (Work) Encounter for wellness examination in adult; Advance directive discussed with patient; Screening for diabetes mellitus (DM); Encounter for lipid screening for cardiovascular disease; Screening for osteoporosis; MenopauseNO[address] MedicineComment on above:Encounter for wellness examination in adult; Advance directive discussed with patient; Screening for diabetes mellitus (DM); Encounter for lipid screening for cardiovascular disease; Screening for osteoporosis; MenopauseStart: 53-11-0888Xkgqdlmhq vaccinationNOMS HealthcareStart: 03-24-2025 [facility]24 End: 59-84-0078Kvcqvmy encounter nugdewlqy87/05/2024 11:30 AM EST Office Visit [facility] [address] [place] D [address] [phone] Afia Dias DO [address] [address] [facility] OBStart: 83-87-7481Lzlmrzwtv for malignant neoplasm of breastMammogramNOMS Healthcare Start: 56-61-9858Rejcjozpd vaccinationInfluenza Vaccine (#1)[facility] Start: 18-10-4767Gwdwjzofi for malignant neoplasm of cervixHPV/CotestNOMS HealthcareStart: 53-69-2413Xxjjtjdmo for malignant neoplasm of colonNOMS Healthcare Payers DatePayer CategoryPayerPolicy [id number] Health InsuranceMEDICAL MUTUAL Member Subscriber Plan / Payer (Effective 2021- Present) Name: Jolly Melgar ID: [id number] Relation to Subscriber: Self Name: Jolly Melgar Payer ID: Not on file Type: Not on file Address: [address] [place], [place] [id number] [employer] [id number] 2021-Present [address] [place] [id number] 2..[id number] 2..1.134190.3.57[id number] 2..1.443987.3.57[id number] 2..1.853742.3.57[id number] 2.0.1.674083.3.57[id number] 2.16.840.1.175937.3.579.2.531 Social History DateTypeDetailFacilityStart: 05-07-2023 End: 11-85-8070Cqkxlfy smoking status NHISNever smoked tobaccoNOMI Healthcare Start: 96-30-4350Nljrnlu use and exposureSmokeless tobacco non-userNOMS HealthcareStart: 11-14-2023 End: 14-76-0199Ofpztjyct beverage intakeCurrent drinker of alcohol (finding)[facility]S HealthcareStart: 11-12-2023 End: 43-89-3271Lazvujg of Social functionNOMS HealthcareStart: 11-12-2023 End: 17-52-1273Lenkpky use panelNOMS HealthcareStart: 56-30-7077Ziqssipvo55QJFD HealthcareStart: 88-32-8013Vwmbkyx CommentCaffeine intake: 1-2 cups per day coffeeNOMS HealthcareStart: 50-47-8726Kkj assigned at birthFeKenmore [facility] Healthcare Start: 24-62-3665Gvmiiw identityIdentifies as female gender (finding)[facility] HealthcareStart: 00-74-0085Ycvgfm orientationHeterosexual (finding)[facility] HealthcareStart: 38-09-0780XcsDfxnkg (finding)[facility] Start: 91-64-4295PguWhhrexCRBF HealthcareNEGATED: Highlighted rowStart: NINF History of tobacco usePassive smokerNOMI Healthcare Functional Status AgwlJcrwlpenbpZfyrexGcabxfft29-40-5906Gxupfbd Health Questionnaire 2 item (PHQ- 2) [Reported][facility] Healthcare History of Present illness Narrative 08-03-2025 Note Date & UtotPoygScdibqkb68-13-8617 History of Present illness Narrative* Douglas Monroe MD - 08/03/2025 11:30 AM EDT Images from the original note were not included. Patient ID: Jolly Melgar is a 55 y.o. female who presents for: Adult Wellness: Advance Directive/Living Will: No Health Care Power of Regional Account Director: No Review of Systems Constitutional: Negative for appetite change, chills, fever and unexpected weight change. Breasts: Negative for breast mass and breast discharge. Respiratory: Negative for cough, shortness of breath and wheezing. Cardiovascular: Negative for chest pain, palpitations and leg swelling. Gastrointestinal: Negative for abdominal pain, constipation and diarrhea. Genitourinary: Negative for frequency and urgency. Neurological: Negative for light-headedness and headaches. Psychiatric/Behavioral: Positive for sleep disturbance. Negative for behavioral problems. The patient is nervous/anxious. Objective The patient is pleasant and in no acute distress. The head is normocephalic and atraumatic. Both eyes appear grossly normal without obvious lid pathology or icterus. Both ears hearing is grossly intact. The neck is supple and trachea is midline. No masses are appreciated. The anterior cervical lymphatics demonstrates shoddy bilateral nontender lymphadenopathy. There is no supraclavicular lymphadenopathy. The heart is regular rate and rhythm without S3, S4. No murmur. The patient has normal respiratory pattern. The breath sounds are symmetrical without evidence of rhonchi or rales. No wheezing. The skin is warm and dry. The lower extremities have trace edema. Neurologic screening exam is nonfocal. The patient is alert. There is no overt gross evidence of cognitive impairment The patient has good eye contact and speech is clear. Appropriate affect. 08/03/2025 11:37 AM 01/14/2025 9:05 AM 10/22/2024 11:42 AM 11/12/2023 1:38 PM Vitals BMI 29.35 kg/m2 28.84 kg/m2 27.46 kg/m2 30.75 kg/m2 BSA (m2) 1.87 m2 1.85 m2 1.85 m2 1.96 m2 Systolic 126 135 118 112 Diastolic 70 95 76 74 Heart Rate 65 SpO2 97 % Height (in) 5' 4 5' 4 Weight (lb) 171 168 165 184.8 Visit Report Report Report No Known Allergies Current Outpatient Medications on File Prior to Visit Medication Sig Dispense Refill b complex vitamins capsule Take 1 capsule by mouth Daily cholecalciferol (Vitamin D-3) 50 MCG (1999 UT) capsule Take 1,000 Units by mouth Daily Hormone Cream Base (HRT Base) cream Estriol 0.125mg-estradiol 0.115- progesterone 35mg-testosterone0.2MG/0.5ML IODINE-POTASSIUM IODIDE PO Take 0.5 tablets by mouth Daily Magnesium Hydroxide (MAGNESIA PO) Take 600 mg by mouth Daily glycinate Multiple Vitamin (multivitamin) capsule Take 1 capsule by mouth in the morning. Probiotic Product (PROBIOTIC BLEND PO) Take by mouth. Zinc 30 MG capsule Take 1 capsule by mouth in the morning. [DISCONTINUED] Ascorbic Acid (Vitamin C) 500 MG capsule Take 1 capsule by mouth 1 (one) time each day. (Patient not taking: Reported on 08/03/2025) [DISCONTINUED] Misc Natural Products (DETOX PO) Take 1 capsule by mouth in the morning. [DISCONTINUED] MISC NATURAL PRODUCTS EX Apply topically Estradiol cream 0.115 mg Estriol 0.125 mg Testosterone 0.2 mg Progesterone 35 mg Vanpen cream 0.5ml FROM BUDERER No current facility-administered medications on file prior to visit. 1. Encounter for wellness examination in adult I have reviewed the patients PMShx, medications, and reconciled the problem list. Health maintenance and risk was reviewed and discussed. I also reviewed and discussed as appropriate; immunizations, colon cancer screening, breast and cervical cancer screening, recommended and any current lab evaluation. All items were brought up to date unless declined by the patient. - Comprehensive metabolic panel; Future - Lipid panel; Future - Comprehensive metabolic panel - Lipid panel 2. Advance directive discussed with patient Patient voluntarily agreed to discuss advance care planning at today's wellness visit. We discussed that an advance directive is a legal document that only goes into effect if the patient is incapacitated and unable to speak for themselves. This would help us to decide what care the patient would want. We discussed emergency treatments to keep the patient alive such as CPR, ventilator use and concept of comfort. We discussed how patients could make their wishes known through a living will, durable power of hris analyst for healthcare, or other advanced directives. We discussed telling adam people about their advance and a copy will be kept in the EHR. I discussedthat they should also make me an emergency contact in their cell phone, and/or notify their POA that I have a copy of the advanced directives. 3. Screening for diabetes mellitus (DM) - Comprehensive metabolic panel; Future - Comprehensive metabolic panel 4. Encounter for lipid screening for cardiovascular disease - Lipid panel; Future - Lipid panel 5. Screening for osteoporosis She wishes to get this done when she gets her yearly cervical cancer screening. This is not unreasonable. 6. Menopause Please Note: Portions of this chart may have been created using voice recognition software. Occasionally a wrong-word or sound-like substitutions may have occurred due to inherent limitations of the voice recognition software. Please read the chart carefully and recognize, using context, where the substitutions may have occurred. documented in this [facility] History of Present illness Narrative 02-15-2025 Note Date & RhlkVdxrQszgubgm05-48-4825 History of Present illness Narrative* Alexander Trejo DO - 02/25/2025 1:15 PM EDT Images from the original note were not included. Jolly Melgar is a 54 y.o. female presents for 1st colonoscopy HPI: HPI Colonoscopy completed 02/15/25 OBJECTIVE: Physical Exam ASSESSMENT AND PLAN: Assessment/Plan Diagnoses and all orders for this visit: Special screening for malignant neoplasms, colon Colonoscopy showed a tiny polyp that was cauterized without collecting pathology. She will need a repeat scope in 7 years documented in this [facility] History of Present illness Narrative 01-14-2025 Note Date & VdmwLlnkTbnuykiv80-27-8087 History of Present illness Narrative* Alexander Trejo DO - 01/14/2025 9:15 AM EST Images from the original note were not included. Jolly Melgar 1970 Jolly Melgar is a 54 y.o. female presents with chief complaint of Schedule colonoscopy HPI: HPI Jolly presents to schedule a colonoscopy, she never had a scope before. She is not having any GI issues SUBJECTIVE: MEDICATIONS: ALLERGIES Current Outpatient Medications Medication Instructions Ascorbic Acid (Vitamin C) 500 MG capsule 1 capsule, Oral, Daily cholecalciferol (VITAMIN D-3) 2,000 Units, Oral, Daily Misc Natural Products (DETOX PO) 1 capsule, Oral, Daily MISC NATURAL PRODUCTS EX Apply externally, Estradiol cream 0.115 mg
Estriol 0.125 mg
Testosterone 0.2 mg
Progesterone 35 mg
Vanpen cream 0.5ml
FROM BUDERER Multiple Vitamin (multivitamin) capsule 1 capsule, Oral, Daily Probiotic Product (PROBIOTIC BLEND PO) Oral Zinc 30 MG capsule 1 capsule, Oral, Daily No Known Allergies PAST MEDICAL HISTORY: SOCIAL HISTORY SURGICAL HISTORY: Past Medical History: Diagnosis Date Ovarian cyst 2016 1996, 2001 Seasonal allergies Social History Tobacco Use Smoking status: Never Passive exposure: Never Smokeless tobacco: Never Vaping Use Vaping status: Never Used Substance Use Topics Alcohol use: Yes Alcohol/week: 1.0 - 2.0 standard drink of alcohol Types: 1 - 2 Standard drinks or equivalent per week Comment: Caffeine intake: 1-2 cups per day coffee Drug use: Never Past Surgical History: Procedure Laterality Date VAGINAL DELIVERY x2 FAMILY HISTORY Family History Problem Relation Name Age of Onset Atrial fibrillation Mother Diabetes Mother Hypertension Mother Heart disease Brother Stroke Brother Diabetes Brother Hypertension Brother Breast cancer Mother's Sister Alzheimer's disease Father's Sister REVIEW OF SYMPTOMS: Review of Systems Constitutional: Positive for hot flashes. Negative for diaphoresis and unexpected weight change. HENT: Negative for hearing loss, tinnitus and voice change. Respiratory: Negative for shortness of breath. Cardiovascular: Negative for chest pain and palpitations. Musculoskeletal: Positive for arthralgias. Neurological: Negative for dizziness, seizures and headaches. All other systems reviewed and are negative. Hematological: Negative for adenopathy. Does not bruise/bleed easily. OBJECTIVE: Visit Vitals OB Status Perimenopausal Smoking Status Never Physical Exam HENT: Head: Normocephalic. Cardiovascular: Rate and Rhythm: Normal rate and regular rhythm. Pulmonary: Effort: Pulmonary effort is normal. Breath sounds: Normal breath sounds. Abdominal: General: Abdomen is flat. Bowel sounds are normal. Palpations: Abdomen is soft. Skin: General: Skin is warm and dry. Neurological: Mental Status: She is alert. ASSESSMENT AND PLAN: Assessment/Plan Problem List Items Addressed This Visit Special screening for malignant neoplasms, colon - Primary I explained the colonoscopy procedure in detail to the patient and discussed the risks and benefitsincluding but not exclusive of bleeding, and perforation. I asked the patient not to drive, operateany machinery or make any important decisions on the day of the procedure. The patient is in agreement and arrangements for colonoscopy have been made. documented in this encounterNOMS Healthcare History of Present illness Narrative 10-22-2024 Note Date & ExrbXlcuFuxldyyf97-04-5152 History of Present illness Narrative* Afia Dias DO - 10/22/2024 11:30 AM EST Images from the original note were not included. Afia Dias DO Obstetrics and Gynecology Name: Jolly Melgar Date/Time of Service:10/22/2024 12:40 PM :1970 Age: 54 y.o. Subjective Jolly Melgar is a 54 y.o. female who is here for a routine exam. Gynecologic Exam (Patient here for a yearly. Denies problems. Completed mammogram on 10/05/24. Has not had a period. Admits to having some break through bleeding when she started her hormones at the beginning which resolved now after her progesterone dose was adjusted. Reports hot flushes/night sweats resolved, only occurs rarely. Admits to vaginal dryness and some dyspareunia) Control Contraception: post menopausal status. LMP: No LMP recorded. Patient is perimenopausal. Last Mammogram Results for orders placed in visit on 10/01/22 Bilateral screening mammogram with tomosynthesis Narrative PERFORMED AT [facility] LOCATION:[place] [address] Patient: TALIA Curran Exam Date: 10/01/2022 : 1970 Gender:F Ordering : DR. AFIA DIAS D.O. Admission #: [id number] Family : Order #: [id number] CLICK HERE TO VIEW EXAM RADIOLOGY REPORT PROCEDURE: MAMMOGRAM SCREENING 3D BILATERAL CAD COMPARISON: MAMMO CHU SCREEN 09/21/2020. MAMMO CHU SCREEN 09/22/2021. INDICATIONS: Screening mammography Calculator Name NCI Breast Cancer Risk Assessment Tool 5 Year Breast Cancer Risk 1.40% Lifetime Breast Cancer Risk 11.20% Personal Breast Cancer No Personal Ovarian Cancer No Treatments None Family Cancers Grandmother-maternal with breast cancer at age 70; Aunt-maternal with breast cancer at age 50; Grandmother-paternal with lymphoma cancer at age 62. LOCATION: [facility] BREAST COMPOSITION: Heterogeneously dense which may obscure small masses. FINDINGS: DIAGNOSTIC CATEGORY [...] Geo Knox MD on 10/01/2022 at 15:28 Current Outpatient Medications on File Prior to Visit Medication Sig Dispense Refill Ascorbic Acid (Vitamin C) 500 MG capsule Take 1 capsule by mouth 1 (one) time each day. cholecalciferol (Vitamin D-3) 50 MCG (2000 UT) capsule Take 2,000 Units by mouth in the morning. Misc Natural Products (DETOX PO) Take 1 capsule by mouth in the morning. MISC NATURAL PRODUCTS EX Apply topically Estradiol cream 0.115 mg Estriol 0.125 mg Testosterone 0.2 mg Progesterone 35 mg Vanpen cream 0.5ml FROM BUDERER Multiple Vitamin (multivitamin) capsule Take 1 capsule by mouth in the morning. Probiotic Product (PROBIOTIC BLEND PO) Take by mouth. Zinc 30 MG capsule Take 1 capsule by mouth in the morning. No current facility-administered medications on file prior to visit. Past Medical History: Diagnosis Date Ovarian cyst 2016 1996, 2001 Seasonal allergies Past Surgical History: Procedure Laterality Date VAGINAL DELIVERY x2 Family History Problem Relation Name Age of Onset Atrial fibrillation Mother Diabetes Mother Hypertension Mother Heart disease Brother Stroke Brother Diabetes Brother Hypertension Brother Breast cancer Mother's Sister Alzheimer's disease Father's Sister Social History Tobacco Use Smoking status: Never Passive exposure: Never Smokeless tobacco: Never Vaping Use Vaping status: Never Used Substance Use Topics Alcohol use: Yes Alcohol/week: 1.0 - 2.0 standard drink of alcohol Types: 1 - 2 Standard drinks or equivalent per week Comment: Caffeine intake: 1-2 cups per day coffee Drug use: Never OB History Para Term AB Living 3 2 1 1 2 SAB IAB Ectopic Multiple Live Births 1 # Outcome Date GA Lbr Michael/2nd Weight Sex Type Anes PTL Lv 3 Term Vag-Spont 2 Para Vag-Spont 1 SAB No Known Allergies Review of Systems Constitutional: Negative. Respiratory: Negative. Cardiovascular: Negative. Gastrointestinal: Negative. Musculoskeletal: Negative. Skin: Negative. Neurological: Negative. Endocrine: Negative. Objective BP 118/76 Wt 165 lb BMI 27.46 kg/m Body mass index is 27.46 kg/m . Physical Exam Genitourinary: Urethral meatus normal. No lesions in the vagina. Genitourinary Comments: Valsalva revealed stage I-II cystocele Right Labia: No lesions. Left Labia: No lesions. No vaginal discharge. Anterior vaginal prolapse present. Moderate vaginal atrophy present. Right Adnexa: not tender and no mass present. Left Adnexa: not tender and no mass present. No cervical lesion. Uterus is not tender. Uterus is anteverted. No urethral stress urinary incontinence with cough stress test present. Bladder is not tender. Rectum: Rectovaginal septum nodularity present. Breasts: Right: No mass, nipple discharge, skin change or tenderness. Left: No mass, nipple discharge, skin change or tenderness. HENT: Head: Normocephalic and atraumatic. Mouth/Throat: Mouth: Mucous membranes are moist. Cardiovascular: Rate and Rhythm: Normal rate and regular rhythm. Pulmonary: Effort: Pulmonary effort is normal. Breath sounds: Normal breath sounds. Abdominal: General: Bowel sounds are normal. Palpations: Abdomen is soft. Musculoskeletal: General: No tenderness. Cervical back: Neck supple. Neurological: Mental Status: She is alert and oriented to person, place, and time. Skin: General: Skin is warm and dry. Psychiatric: Mood and Affect: Mood normal. Vitals and nursing note reviewed. Assessment/Plan 1. Encounter for gynecological examination (general) (routine) with abnormal findings (Primary) Breast and pelvic exam performed. Discussed findings. Patient to contact the office with any changes to her gynecological condition. 2. Cystocele, midline Discussed findings, stable. Continue to observe. Stressed the importance of complete bladder emptying and avoiding long periods between voiding. Patient voiced understanding 3. Postmenopausal HRT (hormone replacement therapy) Continue current Compounded HRT from [facility] pharmacy 4. Menopausal vasomotor syndrome Much improved 5. Vaginal dryness, menopausal Discussed moisturizer/lubricant use 6. Dyspareunia in female 7. Screening breast examination Mammogram uptodate ICD-10-CM 1. Encounter for gynecological examination (general) (routine) with abnormal findings Z01.411 2. Cystocele, midline N81.11 3. Postmenopausal HRT (hormone replacement therapy) Z79.890 4. Screening breast examination Z12.39 5. Menopausal vasomotor syndrome N95.1 6. Vaginal dryness, menopausal N95.1 7. Dyspareunia in female N94.10 Follow up in about 1 year (around 10/22/2025) for Yearly. Afia Dias DO 10/22/2024 12:40 PM [facility] in this [facility] Evaluation note Note Date & TypeNoteFacilityEvaluation note* Diagnosis Encounter for gynecological examination (general) (routine) with abnormal findings- Primary Cystocele, midline Postmenopausal HRT (hormone replacement therapy) Need for prophylactic hormone replacement therapy (postmenopausal) Menopausal vasomotor syndrome Vaginal dryness, menopausal Dyspareunia in female Screening breast examination Other screening breast examination documented in this encounter [facility] Evaluation note Note Date & TypeNoteFacilityEvaluation note* Diagnosis Special screening for malignant neoplasms, colon- Primary documented in this encounter [facility] Evaluation note Note Date & TypeNoteFacilityEvaluation note* Diagnosis Special screening for malignant neoplasms, colon- Primary documented in this encounter [facility] Healthcare Evaluation note Note Date & TypeNoteFacilityEvaluation noteNo assessment information available [facility] Work Phone: Evaluation note Note Date & TypeNoteFacilityEvaluation note* Diagnosis Encounter for wellness examination in adult Advance directive discussed with patient Screening for diabetes mellitus (DM) Screening for diabetes mellitus Encounter for lipid screening for cardiovascular disease Screening for osteoporosis Special screening for osteoporosis Menopause Symptomatic menopausal or female climacteric states documented in this encounter [facility] Healthcare Summary Purpose Family History No Family History Records FoundNo Family History Records FoundNo Family History Records FoundNo Family History Records FoundNo Family History Records Found Advance Directives No Advanced Directives Records FoundNo Advanced Directives Records FoundNo Advanced Directives Records FoundNo Advanced Directives Records FoundNo Advanced Directives Records Found Additional Source Comments INFORMATION SOURCE (unrecogn ized section and content) DATE CREATED AUTHOR 10/27/2021 [facility] [employer] DATE CREATED AUTHOR AUTHOR'S SHARLA GLASGOW 10/05/2022 [facility] DATE CREATED AUTHOR AUTHOR'S ORGANIZ ATION 04/20/2025 [facility] DATE CREATED AUTHOR AUTHOR'S ORGANIZ ATION 08/04/2025 [facility] DATE CREATED AUTHOR AUTHOR'S ORGANIZ ATION 08/08/2025 [facility] Care Teams (unrecognized sec tion and content) Team MemberRelationshipSpecialtyStart DateEnd Date Douglas Monroe MD (Fax) PCP - GeneralFamily Medicine04/30/23Team MemberRelationshipSpecialtyStart DateEnd Date Douglas Monroe MD (Fax) PCP - GeneralFamily Medicine04/30/23Team MemberRelationshipSpecialtyStart DateEnd Date Douglas Monroe MD [address] [place] [address] PCP - GeneralFamily Medicine04/30/23Team MemberRelationshipSpecialtyStart DateEnd Date Douglas Monroe MD [address] [place] [address] (Fax) PCP - GeneralFamily Medicine01/14/25Team MemberRelationshipSpecialtyStart DateEnd Date Dogulas Monroe MD [address] [place] [address] (Fax) PCP - GeneralFamily Medicine01/14/25 Team Status: Inactive Member Role Status Dates Michael Garcia MD Attending Provider Active Start: March 24, 2025 End: March 24, 2025Team MemberRelationshipSpecialtyStart DateEnd Date Douglas Monroe MD [address] [place] [address] (Fax) PCP - GeneralFamily Medicine01/14/25Team MemberRelationshipSpecialtyStart DateEnd Date Douglas Monroe MD [address] [facility] [address] [place] [address] (Fax) PCP - GeneralFamily Medicine01/14/25Team MemberRelationshipSpecialtyStart DateEnd Date Douglas Monroe MD [address] [facility] [address] [place] [address] (Fax) PCP - GeneralFamily Medicine01/14/25Team MemberRelationshipSpecialtyStart DateEnd Date Douglas Monroe MD (Fax) PCP - GeneralFamily Medicine Douglas Monroe MD [address] [facility] [address] [place] [address] (Fax) PCP - GeneralFamily Medicine01/14/25 Reason for Visit (unrecogniz ed section and content) ReasonCommentsGynecologic ExamPatient here for a yearly. Denies problems. Completed mammogram on 10/05/24. Has not had a period. Admits to having some break through bleeding when she started her hormones at the beginning which res olved now after her progesterone dose was adjusted. Reports hot flushes/night sweats resolved, onlyoccurs rarely. Admits to vaginal dryness and some dyspareuniaReasonCommentsSchedule colonoscopySpecialtyDiagnoses / Procedures Referred By ContactReferred To ContactGeneral Surgery Diagnoses Encounter for screening for malignant neoplasm of colon Procedures [place] OFFICE[facility] Douglas Monroe MD [address] [place] [address] Phone: tel: fax:+ Alexander Trejo, DO [address] [address] Phone: tel: fax: Referral IDStatusReasonStart DateExpiration DateVisits RequestedVisits [id number] Specialty Services Required /[id number] pow colonoscopyReasonCommentsAnnual Exam Goals (unrecognized section and content) Goals may be documented in a n alternate section FOR RECORDS PERTAINING TO PATIENTS WHO ARE [...] BE BASED ON THE PRIMARY CLINICAL RECORDS. [employer] provides no warranty or guarantee of the accuracy or completeness of information in this document.
== END 2025-10-06 10:16 | disposition home or self-care (01) ==
LOC: MAMMO 10:16
PROVIDERS: PCP Family Medicine; Visit Provider Obstetrics & Gynecology
DX: Z12.31 Encounter for screening mammogram for malignant neoplasm of breast (principal); Z80.3 Family history of malignant neoplasm of breast; Z80.7 Family history of other malignant neoplasms of lymphoid, hematopoietic and related tissues
CPT/HCPCS: 77063; 77067